=== PATIENT | female | born 1955 | race Caucasian/White ===

== ENCOUNTER 2018-05-23 13:39 | Observation (INO) ==
[2018-05-23] MEDS ORDERED: 0.9 % Sodium Chloride 1,000 ML IVC ONE (14:01)
--- NOTE | 2018-05-23 14:01 | Emergency Department Note ---
Disposition Clinical Impression: Urinary tract infection Qualifiers: Urinary tract infection type: site unspecified Hematuria presence: with hematuria Qualified Code(s): N39.0 - Urinary tract infection, site not specified Disposition: Admitted As Inpatient Condition: Fair Time of Disposition: 15:10 Female Urogenital HPI - General Chief complaint: ED General Medical Stated complaint: NAUSEA, BURNING WITH URINATION Time Seen by Provider: 05/23/18 13:52 Source: patient, other Mode of arrival: EMS Limitations: no limitations Nursing Notes Reviewed: Yes Vital Signs Reviewed: Yes - History of Present Illness HPI Narrative: 63-year-old female resents today from the PCP office secondary to " not feeling well. The patient states she did not having urinary incontinence with dysuria for the past 3-4 days. She also feels weak and slight dizziness with nausea but denies any vomiting or changes in her bowel habits. The patient denies any fever, chest pain, stress of breath, blurred vision, or changes in her bowel habits. She was sent from the PCP office due to concerns for potential cardiac etiology. The patient is a brittle diabetic and has had uncontrolled blood sugar levels within the past week. Pt Subjective Complaint: dysuria Onset (ago): day(s) Severity: unable Quality: burning Duration: gradually worsening Improves with: none Worsens with: urination Urinary Symptoms: dysuria Sexual activity: no : no Associated symptoms: Reports: weakness - Related Data Home Medications Medication Instructions Recorded Confirmed Insulin Glargine,Hum.rec.anlog 40 unit SQ BID 07/22/15 05/23/18 [Lantus Solostar] Alendronate Sodium 70 mg PO QWEEK 10/17/15 05/23/18 Aspirin Enteric Coated [Aspirin EC] 81 mg PO DAILY 07/25/17 05/23/18 Carvedilol 12.5 mg PO BID 07/25/17 05/23/18 Citalopram Hydrobromide 20 mg PO DAILY 07/25/17 05/23/18 [Citalopram HBr] Ergocalciferol (VITAMIN D2) 50,000 unit PO QWEEK 07/25/17 05/23/18 [Vitamin D2] Nitroglycerin [Nitrostat] 0.4 mg SL AD 07/25/17 05/23/18 Insulin ASPART [NovoLOG] 15 - 30 unit SQ TIDWM 11/16/17 05/23/18 Allopurinol [Zyloprim 100 MG] 100 mg PO DAILY 04/19/18 05/23/18 Atorvastatin [Lipitor] 40 mg PO DAILY 04/19/18 05/23/18 Clopidogrel [Plavix] 75 mg PO DAILY 04/19/18 05/23/18 Pramipexole [Mirapex] 0.25 mg PO HS 04/19/18 05/23/18 Zolpidem Tartrate [Zolpidem 5 mg PO HS 04/19/18 05/23/18 Tartrate] Budesonide/Formoterol 160/4.5 2 puff IH BID 05/03/18 05/23/18 [Symbicort 160/4.5] Furosemide [Lasix] 20 mg PO DAILY 05/03/18 05/23/18 Lisinopril [Zestril] 10 mg PO DAILY 05/03/18 05/23/18 Melatonin 10 mg PO HS 05/03/18 05/23/18 Potassium Chloride [K-Tab ER] 20 meq PO DAILY 05/03/18 05/23/18 Pregabalin [Lyrica] 50 mg PO TID 05/03/18 05/23/18 Ergocalciferol (VITAMIN D2) 50,000 unit PO DAILY 05/23/18 05/23/18 [Drisdol (50,000 Unit)] Fluticasone Propionate Nasal 1 spray IH DAILY 05/23/18 05/23/18 [Flonase] Fluticasone/Vilanterol [Breo 1 each IH DAILY 05/23/18 05/23/18 Ellipta 100-25 Mcg INH] Lansoprazole [Prevacid] 30 mg PO DAILY 05/23/18 05/23/18 Allergies Allergy/AdvReac Type Severity Reaction Status Date / Time promethazine [From Phenergan] Allergy Confusion Verified 04/19/18 17:33 venlafaxine [From Effexor] Allergy Nausea Verified 04/19/18 17:33 All systems ED: reviewed and negative except as stated. Review of Systems: As Per HPI Past Medical History - Past Medical History Medical history: Reports: arthritis, cardiomyopathy, CHF, COPD, coronary artery disease, diabetes, hyperlipidemia, hypertension, myocardial infarction, renal disease, other Surgical history: Reports: angioplasty/stent, appendectomy, cholecystectomy, coronary bypass (CABG), hysterectomy, orthopedic, other Psychiatric history: Reports: anxiety, depression DIRECTOR OF CORPORATE RESPONSIBILITY history: Reports: no DIRECTOR OF CORPORATE RESPONSIBILITY history - Social History Smoking Status: Never smoker Smokeless Tobacco Status: No Alcohol use: Reports: none Drug use: Reports: none Physical Exam - General Limitations: no limitations General appearance: alert - Head Head exam: atraumatic, normocephalic, normal inspection - Eye Eye exam: Present: normal appearance, PERRL, EOMI. Absent: conjunctival injection, nystagmus - ENT ENT exam: normal exam, normal oropharynx, mucous membranes moist - Chest Chest inspection: Present: normal inspection, symmetric chest wall rise - Respiratory Respiratory exam: Present: normal lung sounds bilaterally - Cardiovascular Cardiovascular exam: Present: regular rate, normal rhythm, normal heart sounds - Abdominal Exam Abdominal exam: Present: soft, Non-Tender, normal bowel sounds. Absent: distention, guarding, rebound, rigidity - Extremities Exam Extremities exam: Present: normal inspection, full ROM. Absent: tenderness, pedal edema - Neurological Exam Neurological exam: Present: alert, oriented X3, CN II-XII intact - Psychiatric Psychiatric exam: Present: normal affect, normal mood - Skin Skin exam: Present: warm, dry, normal color Course Vital Signs Temperature 98.2 F 05/23/18 13:42 Pulse Rate 82 05/23/18 13:42 Respiratory Rate 16 05/23/18 13:42 Blood Pressure 103/51 05/23/18 13:42 O2 Sat by Pulse Oximetry 96 05/23/18 13:42 Temperature 98.5 F 05/23/18 23:23 Pulse Rate 78 05/23/18 23:23 Respiratory Rate 18 05/23/18 23:23 Blood Pressure 116/66 05/23/18 23:23 O2 Sat by Pulse Oximetry 96 05/23/18 23:23 Urogenital-Female - Differential Diagnosis Likely: urinary tract infection - Medical Records Medical records reviewed: Yes I reviewed the patient's medical records. - Lab Data Lab results reviewed: Yes I reviewed the patient's lab results. Result diagrams: 05/23/18 14:22 05/23/18 14:22 Lab Results 05/23/18 05/23/18 05/23/18 Range/Units 14:11 14:22 14:22 WBC 8.8 (4.3-11.1) K/mcL RBC 4.31 (3.82-4.97) M/mcL Hgb 12.7 (11.5-15.4) g/dL Hct 37.8 (35.3-44.9) % MCV 87.7 (83.0-100.0) fL MCH 29.5 (28.0-33.3) pg MCHC 33.6 (31.6-35.5) g/dL RDW 12.6 (11.5-14.5) % Plt Count 156 (140-400) K/mcL MPV 11.5 (9.4-12.4) fL Immature Gran % 0.3 (0-4) % Seg Neutrophils % 72.9 % Lymphocytes % 19.9 % Monocytes % 5.9 % Eosinophils % 0.5 % Basophils % 0.5 % Neutrophils # 6.5 (1.6-8.9) K/mcL Lymphocytes # 1.8 (0.6-4.6) K/mcL Monocytes # 0.5 (0.0-1.3) K/mcL Eosinophils # 0.0 (0.0-0.6) K/mcL Basophils # 0.0 (0.0-0.2) K/mcL Sodium 130 L (136-145) mEq/L Potassium 5.6 H (3.5-5.1) mEq/L Chloride 96 L (98-107) mEq/L Carbon Dioxide 28 (23-29) mEq/L BUN 18 (8-23) mg/dL Creatinine 1.11 (0.60-1.20) mg/dL Est GFR ( Amer) > 60 (> 60) Est GFR (Non-Af Amer) 50 L (> 60) BUN/Creatinine Ratio 16 (6-26) Glucose 276 H (70-105) mg/dL Calculated Osmolality 282 (280-300) Calcium 9.5 (8.6-10.3) mg/dL Magnesium 1.3 L (1.6-2.6) mg/dL Total Bilirubin 0.8 (0.3-1.0) mg/dL AST 22 (13-39) Units/L ALT 16 (7-52) Units/L Alkaline Phosphatase 129 H (34-104) Units/L Serum Total Protein 7.6 (6.4-8.9) g/dL Albumin 3.6 (3.5-5.7) g/dL Globulin 4.0 H (2.4-3.5) g/dL Albumin/Globulin Ratio 0.9 L (1.1-2.2) TSH 2.466 (0.340-5.600) mcIU/mL Urine Color Yellow (Yellow) Urine Clarity Turbid A (Clear) Urine pH 5.5 (5.0-8.0) pH Units Ur Specific [place] 1.020 (1.010-1.025) Urine Protein >=300 H (Neg-Trace) mg/dL Urine Glucose (UA) Normal (Normal) mg/dL Urine Ketones Negative (Negative) mg/dL Urine Blood Moderate H (Negative) Urine Nitrite Negative (Negative) Urine Bilirubin Small H (Negative) Urine Urobilinogen Normal (Normal) mg/dL Ur Leukocyte Esterase Large H (Negative) Urine Microscopic RBC 3-5 H (0-3) per hpf Urine Microscopic WBC TNTC H (0-3) per hpf Ur Squamous Epith Cells Few (None-Few) per lpf Urine Bacteria Many H (None-Few) per hpf Ur Culture Indicated? YES A (NO) - Radiology Data Radiology results reviewed: Yes I reviewed the patient's radiology results. Chest X-Ray 05/23/18 14:01 IMPRESSION: No acute process. D/ / Ryan Kennedy MD / Ryan Kennedy MD Interpreting Provider: Ryan Kennedy MD - EKG Data EKG attestation: Yes I reviewed and interpreted this EKG. Rate: normal Rhythm: NSR T wave inversions noted in: I, aVL When compared to previous EKG there are MDM ED: no significant changes Interpretation: unchanged when compared to prior tracing (date) (04/19/18), nonspecific ST-T wave changes
[2018-05-23 14:31] LABS: Basophils % 0.5 %; Eosinophils % 0.5 %; Hematocrit 37.8 % (35.3-44.9); Hemoglobin 12.7 g/dL (11.5-15.4); Immature Granulocytes % 0.3 % (0-4); Lymphocytes # 1.8 K/mcL (0.6-4.6); Lymphocytes % 19.9 %; Mean Corpuscular HGB Conc 33.6 g/dL (31.6-35.5); Mean Corpuscular Hemoglobin 29.5 pg (28.0-33.3); Mean Corpuscular Volume 87.7 fL (83.0-100.0); Mean Platelet Volume 11.5 fL (9.4-12.4); Monocytes # 0.5 K/mcL (0.0-1.3); Monocytes % 5.9 %; Neutrophils # 6.5 K/mcL (1.6-8.9); Platelet Count 156 K/mcL (140-400); Red Blood Count 4.31 M/mcL (3.82-4.97); Red Cell Distribution Width 12.6 % (11.5-14.5); Segmented Neutrophils % 72.9 %
[2018-05-23 14:35] LABS: Bilirubin,Urine Small (Negative); Blood,Urine Moderate (Negative); Clarity,Urine Turbid (Clear); Color,Urine Yellow (Yellow); Glucose,Urine (UA) Normal (Normal); Ketones,Urine Negative (Negative); Leukocyte Esterase,Urine Large (Negative); Nitrite,Urine Negative (Negative); PH,Urine 5.5 pH Units (5.0-8.0); Protein,Urine >=300 mg/dL (Neg-Trace); Urobilinogen,Urine Normal (Normal)
[2018-05-23 14:43] LABS: Bacteria,Urine Many per hpf (None-Few); Squamous Epithelial Cell,Urine Few per lpf (None-Few); WBC,Urine TNTC per hpf (0-3)
[2018-05-23] MEDS ORDERED: Levofloxacin 750 MG/150 ML 750 MG/150 ML BAG IVPB ONE (14:46)
[2018-05-23 14:49] LABS: Alanine Aminotransferase 16 Units/L (7-52); Albumin 3.6 g/dL (3.5-5.7); Albumin/Globulin Ratio 0.9 (1.1-2.2); Alkaline Phosphatase 129 Units/L (34-104); Aspartate Amino Transferase 22 Units/L (13-39); BUN/Creatinine Ratio 16 (6-26); Bilirubin,Total 0.8 mg/dL (0.3-1.0); Blood Urea Nitrogen 18 mg/dL (8-23); Calcium 9.5 mg/dL (8.6-10.3); Carbon Dioxide 28 mEq/L (23-29); Chloride 96 mEq/L (98-107); Glucose 276 mg/dL (70-105); Magnesium 1.3 mg/dL (1.6-2.6); Osmolality,Calculated 282 (280-300); Potassium 5.6 mEq/L (3.5-5.1); Sodium 130 mEq/L (136-145); Total Protein 7.6 g/dL (6.4-8.9); eGFR For African Americans > 60 (> 60); eGFR For Non-African Americans 50 (> 60)
[2018-05-23 15:02] LABS: Thyroid Stimulating Hormone 2.466 mcIU/mL (0.340-5.600)
[2018-05-23] MEDS ORDERED: Magnesium Oxide 400 MG TABLET PO STA (15:06)
[2018-05-23] MEDS ORDERED: Ondansetron 4 MG/2 ML VIAL IVP ONE (15:15)
--- NOTE | 2018-05-23 18:30 | Internal Med History&Physical ---
Date of Encounter: 05/23/18 Time of Encounter: 18:00 Assessment and Plan (1) Urinary tract infection Current visit: Yes Status: Acute She was given IV Levaquin in the emergency room. Will give IV Rocephin with lactobacillus. Qualifiers: Urinary tract infection type: site unspecified Hematuria presence: with hematuria Qualified Code(s): N39.0 - Urinary tract infection, site not specified; R31.9 - Hematuria, unspecified (2) Hypomagnesemia Current visit: Yes Status: Acute Will order supplemental magnesium. (3) Low vitamin D level Current visit: Yes Status: Acute Vitamin D level was 11 on 09/02/2014. Recheck in a.m. (4) Hyperkalemia Current visit: Yes Status: Acute Discontinue supplemental potassium and monitor labs. (5) DM type 2 (diabetes mellitus, type 2) Current visit: No Status: Chronic Check hemoglobin A1c in a.m. Continue Lantus/Levemir and do Accu-Cheks with SSI. 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 (7) Tinea pedis Current visit: Yes Status: Acute Will apply Lotrimin cream. Qualifiers: Laterality: left Qualified Code(s): B35.3 - Tinea pedis Internal Medicine - H&P: HPI Chief complaint: Dysuria Admitted From: Emergency Dept Plans for Post Hospital Care: Home History of present illness: Ms. Rowe is a 63 year old female who was sent to emergency room from her PCP office where she had gone for routine follow-up visit and complained of dysuria onset May 21. She had nausea without vomiting diarrhea or significant pain. She was evaluated in emergency room and found to have hyperkalemia, hyponatremia , hypomagnesemia, and UTI. She was admitted to [facility] floor for ongoing care needs. She reports 1-2 urinary tract infections per month for over a year. She does not follow with urology. She has chronic kidney disease stage III and follows with a [facility]. She denies other kidney or bladder disorders. Past Med Surg Social Fam HX - Past Medical History Medical history: arthritis, cardiomyopathy, CHF, COPD, coronary artery disease, diabetes, hyperlipidemia, hypertension, myocardial infarction, renal disease, other Additional medical history: left broken foot. ULCER TO RIGHR FOOT. LEFT FOOT FX AND NOT HEALING WELL. Psychiatric history: anxiety, depression - Past Surgical History Surgical History: angioplasty/stent, appendectomy, cholecystectomy, coronary bypass (CABG), hysterectomy, orthopedic, other Additional surgical history: hardware placement to left foot. 2 CARDIAC STENTS - Social History Smoking Status: Never smoker Smokeless Tobacco Status: No Alcohol use: none Drug use: none - Family History Daughter Living Status: Still Living Internal Medicine - H&P: Meds Insulin Glargine,Hum.rec.anlog [Lantus Solostar] 40 unit SQ BID 07/22/15 [ History] Alendronate Sodium 70 mg PO QWEEK 10/17/15 [History] Aspirin Enteric Coated [Aspirin EC] 81 mg PO DAILY 07/25/17 [History] Carvedilol 12.5 mg PO BID 07/25/17 [History] Citalopram Hydrobromide [Citalopram HBr] 20 mg PO DAILY 07/25/17 [History] Ergocalciferol (VITAMIN D2) [Vitamin D2] 50,000 unit PO QWEEK 07/25/17 [History] Nitroglycerin [Nitrostat] 0.4 mg SL AD 07/25/17 [History] Insulin ASPART [NovoLOG] 15 - 30 unit SQ TIDWM 11/16/17 [History] Allopurinol [Zyloprim 100 MG] 100 mg PO DAILY 04/19/18 [History] Atorvastatin [Lipitor] 40 mg PO DAILY 04/19/18 [History] Clopidogrel [Plavix] 75 mg PO DAILY 04/19/18 [History] Pramipexole [Mirapex] 0.25 mg PO HS 04/19/18 [History] Zolpidem Tartrate [Zolpidem Tartrate] 5 mg PO HS 04/19/18 [History] Budesonide/Formoterol 160/4.5 [Symbicort 160/4.5] 2 puff IH BID 05/03/18 [ History] Furosemide [Lasix] 20 mg PO DAILY 05/03/18 [History] Lisinopril [Zestril] 10 mg PO DAILY 05/03/18 [History] Melatonin 10 mg PO HS 05/03/18 [History] Potassium Chloride [K-Tab ER] 20 meq PO DAILY 05/03/18 [History] Pregabalin [Lyrica] 50 mg PO TID 05/03/18 [History] Ergocalciferol (VITAMIN D2) [Drisdol (50,000 Unit)] 50,000 unit PO DAILY [History] Fluticasone Propionate Nasal [Flonase] 1 spray IH DAILY 05/23/18 [History] Fluticasone/Vilanterol [Breo Ellipta 100-25 Mcg INH] 1 each IH DAILY 05/23/18 [ History] Lansoprazole [Prevacid] 30 mg PO DAILY 05/23/18 [History] 3 Allergy/AdvReac Type Severity Reaction Status Date / Time promethazine [From Phenergan] Allergy Confusion Verified 04/19/18 17:33 venlafaxine [From Effexor] Allergy Nausea Verified 04/19/18 17:33 All Systems PM: A 10-system review of systems was performed and is negative for pertinent findings except as documented above in the HPI. Review of systems: Review of systems from her November 2017 [facility] hospitalization were reviewed and revised as below. Gen.: Her weight has been stable since November 2017 visit at approximately 118 kg. Cardiovascular: She has history of hypertension and known ASHD status post CO 1994. She had stents placed 2004 in 2012. She had 1 vessel CABG October 2016 in [place]. She had a heart catheter 04/21/2018 at [facility] which showed LMCA free of disease, 100% stenosis in the proximal LAD with in-stent restenosis. The FREEMAN to LAD graft was patent. The circumflex was angiographically free of disease and first marginal branch had minimal disease. There was 70% stenosis in the mid ramus. The RCA showed 40-50% stenosis in the right PDA without thrombus present. LVEF was 60%. Echocardiogram 04/20/2018 showed LVEF of 60-65 % with mild LV diastolic dysfunction with E/A ratio of 0.70. No significant valvular abnormalities were seen. Respiratory: She is a lifelong nonsmoker. She has a diagnosis of asthma. She has BLANCA and wears CPAP GI: She is status post cholecystectomy. She has GERD but denies disorders of her liver or exocrine pancreas. : She has CKD stage III and follows with Dr. Steward. She denies other kidney or bladder disorders. Neurologic: She has RLS but denies large distribution strokes or seizures. Endocrine: She was diagnosed with DM 2 approximately 1990. She has hyperlipidemia but no known thyroid disease. She has history of low vitamin D level. Hematology/oncology. She had right breast cancer with a lumpectomy several years ago which was curative. She did not take postoperative radiation therapy or chemotherapy. She denies other internal malignancies or anemia. Psychiatric: She has depression and anxiety but denies other mental health issues. [place] skeletal: She has DJD , gout, and diagnosis of osteoporosis. She has diabetic peripheral neuropathy. She had injury to her left foot from "brittle bones" requiring surgical repair several years ago and generally wears a walking boot on the left foot. - Constitutional Vitals: Temp Pulse Resp BP Pulse Ox 98.2 F 73 18 122/59 96 05/23/18 13:42 05/23/18 15:34 05/23/18 15:34 05/23/18 15:34 05/23/18 15:34 Exam: Gen.: She is well-developed obese female lying in bed who appears in minimal distress at present time HEENT: Head is atraumatic and normocephalic. Eyes: EOMI. There is no scleral icterus. Mouth: Mucosa is moist. Neck: Supple and nontender. There is no thyromegaly or adenopathy noted. Heart: Regular without murmurs gallops or ectopics Lungs: No wheezes or crackles are heard. Abdomen: Soft and nontender to palpation. No masses or guarding are noted. Extremities: There is no cyanosis edema or clubbing noted. Dorsalis pedis and posttibial pulses are trace palpable bilaterally. Neurologic: Mental status: She is talkative and a good historian. Cranial nerves: Smile is symmetric. Forehead wrinkles bilaterally. Tongue protrudes midline. EOMI. Motor: There is no pronator drift. Cerebellar: Finger to nose is intact bilaterally. Skin: Warm and dry. She has tinea corporis on her posterior mid left calf extending to the heel. She has healed surgical scar on her left lateral foot area and bilateral TKR scars. Internal Med - H&P Results - Labs CBC & Chem 7: 05/23/18 14:22 05/23/18 14:22
[2018-05-23] MEDS ORDERED: 0.9 % Sodium Chloride 1,000 ML IVC SCH (19:00)
[2018-05-23] MEDS ORDERED: Insulin DETEMIR 100 UNIT/ML per UNIT SQ ONE ×2 (21:00→21:15)
[2018-05-23] MEDS ORDERED: Melatonin 3 MG TABLET PO SCH (21:00)
[2018-05-23] MEDS: Budesonide/Formoterol 160/4.5 MDI IH SCH (21:01)
[2018-05-23] MEDS: Fluconazole 100 MG TABLET PO SCH (21:52)
[2018-05-23] MEDS: cefTRIAXone 1,000 MG in Water for inj. (sterile) 20 ML 10 ML IVP SCH (21:53)
[2018-05-23] MEDS: Lactobacillus 1 EACH CAP.SPRINK PO SCH (22:07)
[2018-05-23] MEDS: Pregabalin 50 MG CAPSULE PO SCH (22:09)
[2018-05-23] MEDS: Magnesium Oxide 400 MG TABLET PO SCH (22:09)
[2018-05-23] MEDS: Clotrimazole 1% CRM 15 GM TUBE TP SCH (22:19)
[2018-05-24 07:01] LABS: BUN/Creatinine Ratio 19 (6-26); Blood Urea Nitrogen 19 mg/dL (8-23); Carbon Dioxide 29 mEq/L (23-29); Chloride 102 mEq/L (98-107); Glucose 97 mg/dL (70-105); Osmolality,Calculated 286 (280-300); Potassium 4.7 mEq/L (3.5-5.1); Sodium 137 mEq/L (136-145); eGFR For African Americans > 60 (> 60); eGFR For Non-African Americans 56 (> 60)
[2018-05-24] MEDS: Magnesium Oxide 400 MG TABLET PO SCH (08:35)
[2018-05-24] MEDS: Pregabalin 50 MG CAPSULE PO SCH (08:35)
[2018-05-24] MEDS: Lactobacillus 1 EACH CAP.SPRINK PO SCH (08:35)
[2018-05-24] MEDS: Fluconazole 100 MG TABLET PO SCH (08:35)
[2018-05-24] MEDS: cefTRIAXone 1,000 MG in Water for inj. (sterile) 20 ML 10 ML IVP SCH (08:36)
[2018-05-24] MEDS: Clotrimazole 1% CRM 15 GM TUBE TP SCH (08:50)
[2018-05-24] MEDS ORDERED: Aspirin 81 MG TAB.CHEW PO SCH (09:00)
[2018-05-24] MEDS ORDERED: Insulin DETEMIR 100 UNIT/ML X5UNITS SQ SCH (09:00)
[2018-05-24 09:37] LABS: Estimated Average Glucose 240 mg/dl
--- NOTE | 2018-05-24 10:14 | Discharge Summary ---
Orders not resulted at time of discharge: Pending orders 05/24/18 05:37 Vitamin D 25 Hydroxy AM 0400 Date of Encounter: 05/24/18 Time of Encounter: 10:05 - Discharge Diagnosis (1) Urinary tract infection Priority: Primary Status: Acute Qualifiers: Urinary tract infection type: site unspecified Hematuria presence: with hematuria Qualified Code(s): N39.0 - Urinary tract infection, site not specified; R31.9 - Hematuria, unspecified (2) Hypomagnesemia Priority: Secondary Status: Acute (3) Low vitamin D level Priority: Secondary Status: Acute (4) Hyperkalemia Priority: Secondary Status: Resolved (5) DM type 2 (diabetes mellitus, type 2) Priority: Secondary Status: Chronic Qualifiers: Diabetes mellitus senior care insulin use: with pharmacist technician use Diabetes mellitus complication status: without complication Qualified Code(s): E11.9 - Type 2 diabetes mellitus without complications; Z79.4 - [facility] (current) use of insulin (6) CKD (chronic kidney disease) stage 3, GFR 30-59 ml/min Priority: Secondary Status: Chronic (7) Tinea pedis Priority: Secondary Status: Acute Qualifiers: Laterality: left Qualified Code(s): B35.3 - [facility] course: Ms. Rowe is a 63 year old female who was sent to emergency room from her PCP office where she had gone for routine follow-up visit and complained of dysuria onset May 21. She had nausea without vomiting diarrhea or significant pain. She was evaluated in emergency room and found to have hyperkalemia, hyponatremia , hypomagnesemia, and UTI. She was admitted to [facility] floor for ongoing care needs. Initial orders were written by the emergency room physician. I saw her on May 23 and performed the history and physical. She was given IV Levaquin in emergency room. I started her on IV Rocephin with lactobacillus. Urine culture report was pending at time of discharge. She remained afebrile and her symptoms had significantly improved when I saw her on May 23. She will continue on Ceftin with lactobacillus for 3 additional days at discharge. She will also be given Diflucan and Pyridium. Because of the frequency of her urinary infections I told her she discuss with her PCP using a suppressive antibiotic regimen to prevent UTIs. Magnesium level returned low at 1.3. She was started on supplemental magnesium and will be given a 7 day prescription at discharge. Her PCP can monitor this. Vitamin D level is pending at time of discharge. Supplemental potassium was discontinued because of hyperkalemia. Her PCP can monitor labs. Hemoglobin A1c returned elevated at 10.0%. Lantus will be increased to 45 units twice a day at discharge. Topical antifungal cream will be given for rash of her left lower leg. She felt stable for discharge home on May 24. She will follow with her PCP Dr. Felder within 1 week. - Time Spent with Patient Total time spent providing and/or coordinating discharge services: - Discharge Medications Prescriptions: Cefuroxime PO [Ceftin] 500 mg PO Q12HR #6 tablet Econazole Nitrate 15 gm TP BID #1 tube Fluconazole [Diflucan] 100 mg PO DAILY #3 tablet Lactobacillus [Culturelle] 1 each PO BID #6 cap.sprink Magnesium Oxide [Mag-Ox] 400 mg PO BID #14 tablet Phenazopyridine [Pyridium] 200 mg PO TID #9 tablet Home Medications: Alendronate Sodium 70 mg PO QWEEK 10/17/15 [History] Aspirin Enteric Coated [Aspirin EC] 81 mg PO DAILY 07/25/17 [History] Carvedilol 12.5 mg PO BID 07/25/17 [History] Citalopram Hydrobromide [Citalopram HBr] 20 mg PO DAILY 07/25/17 [History] Ergocalciferol (VITAMIN D2) [Vitamin D2] 50,000 unit PO QWEEK 07/25/17 [History] Nitroglycerin [Nitrostat] 0.4 mg SL AD 07/25/17 [History] Insulin ASPART [NovoLOG] 15 - 30 unit SQ TIDWM 11/16/17 [History] Allopurinol [Zyloprim 100 MG] 100 mg PO DAILY 04/19/18 [History] Atorvastatin [Lipitor] 40 mg PO DAILY 04/19/18 [History] Clopidogrel [Plavix] 75 mg PO DAILY 04/19/18 [History] Pramipexole [Mirapex] 0.25 mg PO HS 04/19/18 [History] Zolpidem Tartrate 5 mg PO HS 04/19/18 [History] Budesonide/Formoterol 160/4.5 [Symbicort 160/4.5] 2 puff IH BID 05/03/18 [ History] Lisinopril [Zestril] 10 mg PO DAILY 05/03/18 [History] Melatonin 10 mg PO HS 05/03/18 [History] Pregabalin [Lyrica] 50 mg PO TID 05/03/18 [History] Fluticasone Propionate Nasal [Flonase] 1 spray IH DAILY 05/23/18 [History] Fluticasone/Vilanterol [Breo Ellipta 100-25 Mcg INH] 1 each IH DAILY 05/23/18 [ History] Cefuroxime PO [Ceftin] 500 mg PO Q12HR #6 tablet 05/24/18 [Rx] Econazole Nitrate 15 gm TP BID #1 tube 05/24/18 [Rx] Fluconazole [Diflucan] 100 mg PO DAILY #3 tablet 05/24/18 [Rx] Insulin Glargine,Hum.rec.anlog [Lantus Solostar] 45 unit SQ BID #0 05/24/18 [Rx] Lactobacillus [Culturelle] 1 each PO BID #6 cap.sprink 05/24/18 [Rx] Lansoprazole [Prevacid] 30 mg PO DAILY PRN #0 05/24/18 [Rx] Magnesium Oxide [Mag-Ox] 400 mg PO BID #14 tablet 05/24/18 [Rx] Phenazopyridine [Pyridium] 200 mg PO TID #9 tablet 05/24/18 [Rx] Allergies/Adverse Reactions: 3 Allergy/AdvReac Type Severity Reaction Status Date / Time promethazine [From Phenergan] Allergy Confusion Verified 04/19/18 17:33 venlafaxine [From Effexor] Allergy Nausea Verified 04/19/18 17:33 Date of admission: 05/23/18 15:34 Primary care physician: Reji Felder DO Consults: 05/23/18 16:57 Consult to Seasonal Package Handler [CONS] Routine Reason for SW Consult: has HH but does not know name of company - Constitutional Vitals: Temp Pulse Resp BP Pulse Ox 97.8 F 79 16 113/51 93 05/24/18 06:39 05/24/18 06:39 05/24/18 06:39 05/24/18 06:39 05/24/18 06:39 - Patient Status Disposition: Home, Self-Care Condition: Fair Overall status at discharge: patient is progressing back to baseline - Discharge Instructions Follow Up With: Reji Felder DO [Primary Care Provider] - 1 week - Diet and Activity Activity: resume usual activities as tolerated Diet: diabetic diet
[2018-05-24 10:52] VITALS: BP 102/58
[2018-05-24] MEDS: Budesonide/Formoterol 160/4.5 MDI IH SCH (10:58)
--- NOTE | 2018-05-25 06:42 | Electrocardiograph Report ---
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
== END 2018-05-24 11:55 | disposition home or self-care (01) ==
LOC: EMEROOPIK 13:39 → INPPIK 13:39
PROVIDERS: ADMIT Internal Medicine; ATTEND Internal Medicine

== ENCOUNTER 2018-09-09 15:09 | Observation (INO) ==
[2018-09-09] MEDS ORDERED: Aspirin 81 MG TAB.CHEW PO ONE (15:13)
[2018-09-09] MEDS ORDERED: Nitroglycerin Spray 4.9 GM BOTTLE TL PRN ×2 (15:18→18:10)
--- NOTE | 2018-09-09 15:32 | Emergency Department Note ---
Disposition Clinical Impression: Stable angina, Chest pain Disposition: Admitted As Inpatient Condition: Fair Time of Disposition: 16:27 ( accepted) Chest Pain HPI - General Chief Complaint: ED Chest Pain Stated Complaint: CHEST PAIN Time Seen by Provider: 09/09/18 15:13 Source: patient, EMS Mode of arrival: EMS Limitations: no limitations, physical limitation Vital Signs Reviewed: Yes Nursing Notes Reviewed: Yes - History of Present Illness HPI Narrative: 63-year-old female presented to the emergency department via EMS with complaints of substernal chest pain. Patient reports that she was folding some clothes last night when she began having the pain, and she complains of pain waxing on and off since last night. She reports that the pain initially was 8 out of a 10 scale, but presently is a 6 out of a 10 scale. Patient has had prior history of CABG, known coronary disease, and history of 6 cardiac stent placement. Her dental professional is at [facility] in [place]. Patient did not take any sublingual nitroglycerin, prior to coming in. She states to me she feels like someone is sitting on top of her chest. Pt complaint: chest pain Onset (ago): hour(s) (12) Duration: intermittent Onset: during rest Pain Location: left chest Severity: moderate Severity scale (1-10): 6 Quality: tightness, sharp Pain Radiation: LUE Improves with: nothing Worsens with: nothing Associated symptoms: Denies: nausea, vomiting, diaphoresis, dyspnea - Related Data Home Medications Medication Instructions Recorded Confirmed Alendronate Sodium 70 mg PO QWEEK 10/17/15 06/05/18 Aspirin Enteric Coated [Aspirin EC] 81 mg PO DAILY 07/25/17 06/05/18 Carvedilol 12.5 mg PO BID 07/25/17 06/05/18 Citalopram Hydrobromide 20 mg PO DAILY 07/25/17 05/23/18 [Citalopram HBr] Nitroglycerin [Nitrostat] 0.4 mg SL AD 07/25/17 06/05/18 Insulin ASPART [NovoLOG] 15 - 30 unit SQ TIDWM 11/16/17 06/05/18 Atorvastatin [Lipitor] 40 mg PO DAILY 04/19/18 06/05/18 Clopidogrel [Plavix] 75 mg PO DAILY 04/19/18 06/05/18 Pramipexole [Mirapex] 0.25 mg PO HS 04/19/18 06/05/18 Zolpidem Tartrate 10 mg PO HS 04/19/18 06/05/18 Budesonide/Formoterol 160/4.5 2 puff IH BID 05/03/18 06/05/18 [Symbicort 160/4.5] Lisinopril [Zestril] 5 mg PO DAILY 05/03/18 06/05/18 Fluticasone Propionate Nasal 1 spray IH DAILY 05/23/18 06/05/18 [Flonase] Fluticasone/Vilanterol [Breo 1 each IH DAILY 05/23/18 06/05/18 Ellipta 100-25 Mcg INH] ARIPiprazole [Abilify] 5 mg PO DAILY 06/05/18 06/05/18 Calcium Carbonate [Calcium] 600 mg PO DAILY 06/05/18 06/05/18 Clobetasol Propionate [Clobex] 59 ml TP DAILY 06/05/18 06/05/18 Ergocalciferol (VITAMIN D2) 50,000 unit PO DAILY 06/05/18 06/05/18 [Drisdol (50,000 Unit)] Furosemide [Lasix] 20 mg PO DAILY 06/05/18 06/05/18 Gabapentin [Neurontin] 300 mg PO TID 06/05/18 06/05/18 Insulin Glargine,Hum.rec.anlog 70 unit SQ BID 06/05/18 06/05/18 [Lantus Solostar] Omeprazole [PriLOSEC] 40 mg PO DAILY 06/05/18 06/05/18 Potassium Chloride [K-Tab ER] 20 meq PO DAILY 06/05/18 06/05/18 Pramipexole Di-HCl [Pramipexole 0.25 mg PO HS 06/05/18 06/05/18 Dihydrochloride] Tramadol HCl [Ultram] 50 mg PO QID PRN 06/05/18 06/05/18 Previous Rx's Medication Instructions Recorded Cyclobenzaprine [Flexeril] 5 mg PO TID #20 tablet 06/24/18 HYDROcodone/Acet 5/325 mg [[place] 1 tab PO Q6H PRN 3 Days #10 tab 06/24/18 5-325 mg] Allergies Allergy/AdvReac Type Severity Reaction Status Date / Time promethazine [From Phenergan] Allergy Confusion Verified 09/09/18 15:10 venlafaxine [From Effexor] Allergy Nausea Verified 09/09/18 15:10 Constitutional: Denies: fever, chills, weakness, weight change Eyes: Denies: eye pain, eye discharge, vision change ENT ED: Denies: ear pain, throat pain, dental pain, hearing loss, epistaxis, congestion, dysphagia Cardiovascular: Denies: chest pain, palpitations, dyspnea on exertion, edema, syncope Respiratory: Denies: cough, dyspnea, wheezes, hemoptysis, stridor Gastrointestinal: Denies: abdominal pain, nausea, vomiting, diarrhea, constipation, hematemesis, melena, hematochezia Genitourinary: Denies: dysuria, frequency, hematuria, discharge Musculoskeletal: Denies: back pain, neck pain, arthralgia, myalgia Integumentary: Denies: rash, abrasion, lesions Neurological: Denies: headache, weakness, numbness, paresthesias, confusion, abnormal gait, vertigo Psychiatric: Denies: anxiety, depression, suicidal thoughts, homicidal thoughts, auditory hallucinations, visual hallucinations Endocrine: Denies: fatigue Hematological/Lymphatic: Denies: easy bleeding, easy bruising Allergic/Immunologic: Denies: facial swelling, urticaria Chest Pain PMH - Past Medical History Medical history: Reports: arthritis, cardiomyopathy, CHF, COPD, coronary artery disease, diabetes, hyperlipidemia, hypertension, myocardial infarction, renal disease Surgical history: Reports: angioplasty/stent, appendectomy, cholecystectomy, coronary bypass (CABG), hysterectomy, orthopedic, other Psychiatric history: Reports: anxiety, depression DROSOPHERE OPERATOR history: Reports: no DROSOPHERE OPERATOR history - Social History Smoking Status: Never smoker Alcohol use: Reports: none Drug use: Reports: none Physical Exam - General Limitations: physical limitation General appearance: alert, in no apparent distress - Head Head exam: atraumatic, normocephalic, normal inspection - Eye Eye exam: Present: normal appearance, PERRL, EOMI - Expanded Eye Exam Pupils: Left: reactive - ENT ENT exam: normal exam, normal oropharynx, mucous membranes moist - Expanded ENT Exam External ear exam: Present: normal external inspection Mouth exam: Present: normal external inspection Teeth exam: Present: normal inspection Throat exam: Present: normal inspection - Neck Neck exam: Present: normal inspection, full ROM, trachea midline - Chest Chest inspection: Present: normal inspection, symmetric chest wall rise - Respiratory Respiratory exam: Present: normal lung sounds bilaterally - Cardiovascular Cardiovascular exam: Present: regular rate, normal rhythm, normal heart sounds - Abdominal Exam Abdominal exam: Present: soft, Non-Tender. Absent: tenderness, distention, guarding, rebound, rigidity - Extremities Exam Extremities exam: Present: normal inspection, full ROM, other (Patient wears a boot to her left lower extremity, secondary to injury 2 years ago). Absent: tenderness, pedal edema - Expanded Upper Extremity Exam Shoulder exam: Present: normal inspection, full ROM Arm exam: Present: normal inspection, full ROM Elbow exam: Present: normal inspection, full ROM Forearm/Wrist exam: Present: normal inspection, full ROM Hand exam: Present: normal inspection, full ROM Vascular exam: Normal: capillary refill, radial pulse - Expanded Lower Extremity Exam Hip/Pelvis exam: Present: normal inspection, full ROM Upper leg exam: Present: normal inspection, full ROM Knee exam: Present: normal inspection, full ROM Lower leg exam: Present: normal inspection, full ROM, other (Patient wears a boot to her left lower extremity, secondary to previous injury) Ankle exam: Present: normal inspection, full ROM Foot/toe exam: Present: normal inspection, full ROM Neurovascular/Tendon exam: Absent: motor deficit, sensory deficit, tendon deficit - Back Exam Back exam: Present: normal inspection, full ROM. Absent: tenderness - Neurological Exam Neurological exam: Present: alert, oriented X3 - Expanded Neurological Exam Patient oriented to: Present: person, place, time Coma Scale Eye Opening: Spontaneous Coma Scale Motor Response: Obeys Commands Coma Scale Verbal Response: Oriented Coma Scale Total: 15 - Psychiatric Psychiatric exam: Present: normal affect, normal mood - Skin Skin exam: Present: warm, dry, intact, normal color Course Vital Signs Temperature 98.5 F 09/09/18 15:10 Pulse Rate 73 09/09/18 15:10 Respiratory Rate 14 09/09/18 15:10 Blood Pressure 163/67 09/09/18 15:10 O2 Sat by Pulse Oximetry 95 09/09/18 15:10 Temperature 98.5 F 09/09/18 15:10 Pulse Rate 66 09/09/18 18:18 Respiratory Rate 12 09/09/18 18:18 Blood Pressure 137/58 09/09/18 18:18 O2 Sat by Pulse Oximetry 97 09/09/18 18:18 Oxygen Delivery Oxygen Delivery Room Air Chest Pain - MDM Narrative Medical decision making narrative: Patient was given aspirin, and nitroglycerin spray 2. The nitroglycerin did help her chest pain and it brought it down from a 6 down to approximately a 3. CBC is normal patient is BUN/creatinine creatinine is around 1.20 and potassium of 5.4. This could be related to dehydration and hyperglycemia. Patient was ordered normal saline 500 bolus, and insulin 6 units of regular IV. At approximately 4:20 PM, patient is chest pain-free I spoke with Dr. Peralta who accepted the patient had wanted a repeat troponin in 2 hours which I have went ahead and ordered. Repeat troponin in 2 hours was within normal limits - Differential Diagnosis Likely: unstable angina pectoris, atypical chest pain, st elevation myocardial infraction, chest pain - Medical Records Medical records reviewed: Yes I reviewed the patient's medical records. - Lab Data Lab results reviewed: Yes I reviewed the patient's lab results. Result diagrams: 09/09/18 15:31 09/09/18 15:31 Lab Results 09/09/18 09/09/18 09/09/18 Range/Units 15:31 15:31 15:31 WBC 4.5 (4.3-11.1) K/mcL RBC 4.41 (3.82-4.97) M/mcL Hgb 12.7 (11.5-15.4) g/dL Hct 37.8 (35.3-44.9) % MCV 85.7 (83.0-100.0) fL MCH 28.8 (28.0-33.3) pg MCHC 33.6 (31.6-35.5) g/dL RDW 12.8 (11.5-14.5) % Plt Count 124 L (140-400) K/mcL MPV 11.7 (9.4-12.4) fL Immature Gran % 0.2 (0-4) % Seg Neutrophils % 63.1 % Lymphocytes % 28.0 % Monocytes % 6.2 % Eosinophils % 1.8 % Basophils % 0.7 % Neutrophils # 2.8 (1.6-8.9) K/mcL Lymphocytes # 1.3 (0.6-4.6) K/mcL Monocytes # 0.3 (0.0-1.3) K/mcL Eosinophils # 0.1 (0.0-0.6) K/mcL Basophils # 0.0 (0.0-0.2) K/mcL PT 11.4 (9.4-12.1) Seconds INR 1.0 APTT 36.8 H (26.0-36.0) Seconds Sodium (136-145) mEq/L Potassium (3.5-5.1) mEq/L Chloride (98-107) mEq/L Carbon Dioxide (23-29) mEq/L BUN (8-23) mg/dL Creatinine (0.60-1.20) mg/dL Est GFR ( Amer) (> 60) Est GFR (Non-Af Amer) (> 60) BUN/Creatinine Ratio (6-26) Glucose (70-105) mg/dL Calculated Osmolality (280-300) Calcium (8.6-10.3) mg/dL Troponin I (< 0.04) ng/mL B-Natriuretic Peptide 47 (Less than 100) pg/mL 09/09/18 09/09/18 Range/Units 15:31 17:26 WBC (4.3-11.1) K/mcL RBC (3.82-4.97) M/mcL Hgb (11.5-15.4) g/dL Hct (35.3-44.9) % MCV (83.0-100.0) fL MCH (28.0-33.3) pg MCHC (31.6-35.5) g/dL RDW (11.5-14.5) % Plt Count (140-400) K/mcL MPV (9.4-12.4) fL Immature Gran % (0-4) % Seg Neutrophils % % Lymphocytes % % Monocytes % % Eosinophils % % Basophils % % Neutrophils # (1.6-8.9) K/mcL Lymphocytes # (0.6-4.6) K/mcL Monocytes # (0.0-1.3) K/mcL Eosinophils # (0.0-0.6) K/mcL Basophils # (0.0-0.2) K/mcL PT (9.4-12.1) Seconds INR APTT (26.0-36.0) Seconds Sodium 135 L (136-145) mEq/L Potassium 5.4 H (3.5-5.1) mEq/L Chloride 100 (98-107) mEq/L Carbon Dioxide 30 H (23-29) mEq/L BUN 20 (8-23) mg/dL Creatinine 1.20 (0.60-1.20) mg/dL Est GFR ( Amer) 55 L (> 60) Est GFR (Non-Af Amer) 46 L (> 60) BUN/Creatinine Ratio 17 (6-26) Glucose 471 H (70-105) mg/dL Calculated Osmolality 303 H (280-300) Calcium 9.0 (8.6-10.3) mg/dL Troponin I < 0.03 < 0.03 (< 0.04) ng/mL B-Natriuretic Peptide (Less than 100) pg/mL - Radiology Data Radiology results reviewed: Yes I reviewed the patient's radiology results. - EKG Data EKG attestation: Yes I reviewed and interpreted this EKG. EKG results narrative: EKG is normal sinus rhythm, what appears to be T-wave inversion in 1 and aVL. EKG looks the same as one , in June 2018. Patient has had also a cardiac catheterization in April 2018, which showed her stents to be patent. She did have 100% distal LAD lesion. The patient has had also prior CABG. EKG shows normal: sinus rhythm Rate: normal Rhythm: NSR [place]/QRS: left axis deviation T wave inversions noted in: I, aVL - Core Measures AMI Core Measures Followed: Yes (Aspirin given, sublingual nitroglycerin)
[2018-09-09 15:42] LABS: Basophils % 0.7 %; Eosinophils # 0.1 K/mcL (0.0-0.6); Eosinophils % 1.8 %; Hematocrit 37.8 % (35.3-44.9); Hemoglobin 12.7 g/dL (11.5-15.4); Immature Granulocytes % 0.2 % (0-4); Lymphocytes # 1.3 K/mcL (0.6-4.6); Mean Corpuscular HGB Conc 33.6 g/dL (31.6-35.5); Mean Corpuscular Hemoglobin 28.8 pg (28.0-33.3); Mean Corpuscular Volume 85.7 fL (83.0-100.0); Mean Platelet Volume 11.7 fL (9.4-12.4); Monocytes # 0.3 K/mcL (0.0-1.3); Monocytes % 6.2 %; Neutrophils # 2.8 K/mcL (1.6-8.9); Platelet Count 124 K/mcL (140-400); Red Blood Count 4.41 M/mcL (3.82-4.97); Red Cell Distribution Width 12.8 % (11.5-14.5); Segmented Neutrophils % 63.1 %
[2018-09-09 15:52] LABS: Prothrombin Time 11.4 Seconds (9.4-12.1)
[2018-09-09 15:55] LABS: Activated Partial Thrombo Time 36.8 Seconds (26.0-36.0)
[2018-09-09 16:02] LABS: BUN/Creatinine Ratio 17 (6-26); Blood Urea Nitrogen 20 mg/dL (8-23); Carbon Dioxide 30 mEq/L (23-29); Chloride 100 mEq/L (98-107); Glucose 471 mg/dL (70-105); Osmolality,Calculated 303 (280-300); Potassium 5.4 mEq/L (3.5-5.1); Sodium 135 mEq/L (136-145); eGFR For Non-African Americans 46 (> 60)
[2018-09-09 16:03] LABS: Troponin I < 0.03 ng/mL (< 0.04)
[2018-09-09] MEDS ORDERED: 0.9 % Sodium Chloride 500 ML IVC ONE (16:08)
[2018-09-09] MEDS ORDERED: Insulin Regular, Human 100 UNIT/ML IV ONE (16:18)
[2018-09-09] MEDS ORDERED: Nitroglycerin 0.4 MG TAB.SUBL SL PRN (18:10)
[2018-09-09] MEDS ORDERED: *HR* HYDROcodone/Acet 5/325 mg TABLET PO PRN (18:10)
[2018-09-09] MEDS ORDERED: NON-FORMULARY MEDICATION 1 EACH EACH (Alendronate Sodium [Alendronate Sodium] 70 MG) PO SCH (18:10)
[2018-09-09] MEDS ORDERED: Melatonin 3 MG TABLET PO SCH (21:42)
[2018-09-09] MEDS: Budesonide/Formoterol 160/4.5 1 PUFF INH IH SCH (21:44)
[2018-09-09] MEDS ORDERED: Insulin DETEMIR 100 UNIT/ML per UNIT SQ ONE (21:45)
[2018-09-09] MEDS: Gabapentin 300 MG CAPSULE PO SCH (21:54)
[2018-09-10 07:25] VITALS: BP 127/80
[2018-09-10] MEDS: Gabapentin 300 MG CAPSULE PO SCH (08:30)
[2018-09-10] MEDS ORDERED: CLOBETASOL PROPIONATE 15 GM TUBE TP SCH (09:00)
[2018-09-10] MEDS ORDERED: Cholecalciferol (D-3) 1,000 UNIT TABLET PO SCH (09:00)
[2018-09-10] MEDS ORDERED: ARIPiprazole 5 MG TABLET PO SCH (09:00)
[2018-09-10] MEDS ORDERED: Aspirin Enteric Coated 81 MG Tablet PO SCH (09:00)
[2018-09-10] MEDS ORDERED: Insulin DETEMIR 100 UNIT/ML X5UNITS SQ SCH (09:00)
[2018-09-10] MEDS ORDERED: Furosemide 20 MG TABLET PO SCH (09:00)
--- NOTE | 2018-09-10 09:56 | Internal Med History&Physical ---
Date of Encounter: 09/10/18 Time of Encounter: 09:25 Assessment and Plan (1) Chest pain Current visit: Yes Status: Acute Appears chest wall in origin. Doubt myocardial ischemia from history and physical. Qualifiers: Chest pain type: precordial pain Qualified Code(s): R07.2 - Precordial pain (2) CKD (chronic kidney disease) stage 3, GFR 30-59 ml/min Current visit: No Status: Chronic Creatinine slightly higher at 1.20 from 05/23/2018 level of 1.11. Internal Medicine - H&P: HPI Chief complaint: Chest pain Admitted From: Emergency Dept Plans for Post Hospital Care: Home History of present illness: Ms. Rowe is a 63 year old female who came to emergency room stating she had sudden onset of sharp chest pain in her mid sternal area while folding clothes the evening of September 08. The pain lasted approximately 5 minutes and then significantly lessened but did not completely resolve. She awakened the following morning and had recurrent episodes that were slightly less severe. She states there was slight dyspnea associated but no coughing. She came to emergency room and was evaluated and admitted to [facility] for ongoing care needs. She states she is pain-free at the present time. She reports previous similar episodes of pain approximately one week ago. She occasionally gets discomfort on exertion but describes it as a different type of chest pain. She has history of hypertension and known ASHD status post [place] 1994. She had stents placed 2004 in 2012. She had 1 vessel CABG October 2016 in [place]. She had a heart catheter 04/21/2018 at [facility] which showed LMCA free of disease, 100% stenosis in the proximal LAD with in-stent restenosis. The FREEMAN to LAD graft was patent. The circumflex was angiographically free of disease and first marginal branch had minimal disease. There was 70% stenosis in the mid ramus. The RCA showed 40-50% stenosis in the right PDA without thrombus present. LVEF was 60%. Echocardiogram 04/20/2018 showed LVEF of 60-65% with mild LV diastolic dy sfunction with E/A ratio of 0.70. No significant valvular abnormalities were seen. Past Med Surg Social Fam HX - Past Medical History Medical history: arthritis, cardiomyopathy, CHF, COPD, coronary artery disease, diabetes, hyperlipidemia, hypertension, myocardial infarction, renal disease Additional medical history: left broken foot. ULCER TO RIGHR FOOT. LEFT FOOT FX AND NOT HEALING WELL. Psychiatric history: anxiety, depression - Past Surgical History Surgical History: angioplasty/stent, appendectomy, cholecystectomy, coronary bypass (CABG), hysterectomy, orthopedic, other Additional surgical history: hardware placement to left foot. 2 CARDIAC STENTS. CARDIAC BYPASS - Social History Smoking Status: Never smoker Smokeless Tobacco Status: No Alcohol use: none Drug use: none - Family History Daughter Living Status: Still Living Internal Medicine - H&P: Meds Alendronate Sodium 70 mg PO QWEEK 10/17/15 [History] Aspirin Enteric Coated [Aspirin EC] 81 mg PO DAILY 07/25/17 [History] Carvedilol 12.5 mg PO BID 07/25/17 [History] Citalopram Hydrobromide [Citalopram HBr] 20 mg PO DAILY 07/25/17 [History] Nitroglycerin [Nitrostat] 0.4 mg SL AD 07/25/17 [History] Insulin ASPART [NovoLOG] 15 - 30 unit SQ TIDWM 11/16/17 [History] Atorvastatin [Lipitor] 40 mg PO DAILY 04/19/18 [History] Clopidogrel [Plavix] 75 mg PO DAILY 04/19/18 [History] Pramipexole [Mirapex] 0.25 mg PO HS 04/19/18 [History] Zolpidem Tartrate 10 mg PO HS 04/19/18 [History] Budesonide/Formoterol 160/4.5 [Symbicort 160/4.5] 2 puff IH BID 05/03/18 [History] Lisinopril [Zestril] 5 mg PO DAILY 05/03/18 [History] Fluticasone Propionate Nasal [Flonase] 1 spray IH DAILY 05/23/18 [History] Fluticasone/Vilanterol [Breo Ellipta 100-25 Mcg INH] 1 each IH DAILY 05/23/18 [History] ARIPiprazole [Abilify] 5 mg PO DAILY 06/05/18 [History] Calcium Carbonate [Calcium] 600 mg PO DAILY 06/05/18 [History] Clobetasol Propionate [Clobex] 59 ml TP DAILY 06/05/18 [History] Ergocalciferol (VITAMIN D2) [Drisdol (50,000 Unit)] 50,000 unit PO DAILY 06/05/18 [History] Furosemide [Lasix] 20 mg PO DAILY 06/05/18 [History] Gabapentin [Neurontin] 300 mg PO TID 06/05/18 [History] Insulin Glargine,Hum.rec.anlog [Lantus Solostar] 70 unit SQ BID 06/05/18 [History] Omeprazole [PriLOSEC] 40 mg PO DAILY 06/05/18 [History] Potassium Chloride [K-Tab ER] 20 meq PO DAILY 06/05/18 [History] Pramipexole Di-HCl [Pramipexole Dihydrochloride] 0.25 mg PO HS 06/05/18 [History] Tramadol HCl [Ultram] 50 mg PO QID PRN 06/05/18 [History] Cyclobenzaprine [Flexeril] 5 mg PO TID #20 tablet 06/24/18 [Rx] HYDROcodone/Acet 5/325 mg [[place] 5-325 mg] 1 tab PO Q6H PRN 3 Days #10 tab 06/24/18 [Rx] Allergy/AdvReac Type Severity Reaction Status Date / Time promethazine [From Phenergan] Allergy Confusion Verified 09/09/18 15:10 venlafaxine [From Effexor] Allergy Nausea Verified 09/09/18 15:10 All Systems PM: A 10-system review of systems was performed and is negative for pertinent findings except as documented above in the HPI. Review of systems: Review of systems from her May 2018 [facility] hospitalization were reviewed and revised as below. Gen.: Her weight has increased from 117.934 kg on 05/23/2018 to 128.82 kg on admission. Cardiovascular: As per history of present illness Respiratory: She is a lifelong nonsmoker. She has a diagnosis of asthma. She has BLANCA and wears CPAP but does not use home oxygen. GI: She is status post cholecystectomy. She has GERD but denies disorders of her liver or exocrine pancreas. : She has CKD stage III and follows with Dr. Steward. She denies other kidney or bladder disorders. Neurologic: She has RLS but denies large distribution strokes or seizures. Endocrine: She was diagnosed with DM 2 approximately 1990. She has hyperlipidemia but no known thyroid disease. She has history of low vitamin D level. Hematology/oncology. She had right breast cancer with a lumpectomy several years ago which was curative. She did not take postoperative radiation therapy or chemotherapy. She denies other internal malignancies or anemia. Psychiatric: She has depression and anxiety but denies other mental health issues. [place] skeletal: She has DJD , gout, and diagnosis of osteoporosis. She has diabetic peripheral neuropathy. She had injury to her left foot from "brittle bones" requiring surgical repair several years ago and generally wears a walking boot on the left foot. - Constitutional Vitals: Temp Pulse Resp BP Pulse Ox 97.6 F 69 16 127/80 96 09/10/18 07:24 09/10/18 07:24 09/10/18 07:24 09/10/18 07:24 09/10/18 07:24 Exam: Gen.: She is well-developed obese female resting In the side of bed who appears in no acute distress HEENT: Head is atraumatic and normocephalic. Eyes: EOMI. There is no scleral icterus. Mouth: Mucosa is moist. Neck: Supple and nontender. There is no thyromegaly or adenopathy noted. Heart: Regular without murmurs gallops or ectopics Lungs: No wheezes or crackles are heard. Chest: She has significant tenderness in her costosternal joints stating "that is the pain" on chest wall compression. Abdomen: Soft and nontender. No masses or guarding are noted. Extremities: There is no cyanosis edema or clubbing noted of the right foot. Dorsalis pedis and posterior tibial pulses are trace palpable. The left foot has a walking boot in place which I did not remove. She has minimal DJD changes of her hands. Neurologic: Mental status: She is talkative and a good historian. Cranial nerves: Smile is symmetric. Forehead wrinkles bilaterally. Tongue protrudes midline. EOMI. Motor: There is no pronator drift. Cerebellar: Finger to nose is intact bilaterally. Skin: Warm and dry Internal Med - H&P Results - Labs CBC & Chem 7: 09/09/18 15:31 09/09/18 15:31 Labs: Short CBC 09/09/18 Range/Units 15:31 WBC 4.5 (4.3-11.1) K/mcL Hgb 12.7 (11.5-15.4) g/dL Hct 37.8 (35.3-44.9) % Plt Count 124 L (140-400) K/mcL Neutrophils # 2.8 (1.6-8.9) K/mcL BMP 09/09/18 15:31 Sodium 135 L Potassium 5.4 H Chloride 100 Carbon Dioxide 30 H BUN 20 Creatinine 1.20 Glucose 471 H Calcium 9.0 Cardiac Enzymes 09/09/18 09/09/18 Range/Units 15:31 17:26 Troponin I < 0.03 < 0.03 (< 0.04) ng/mL - Impressions ITS Impressions Chest X-Ray 09/09/18 15:13 IMPRESSION: Low lung volumes without acute cardiopulmonary disease. D/ / 09/09/2018 16:12:30 Leighann Olivia MD / [facility] Interpreting Provider: Leighann Olivia MD
--- NOTE | 2018-09-10 10:05 | Discharge Summary ---
Orders not resulted at time of discharge: Pending orders 09/09/18 15:13 ECG 12 lead ECG [ECG] Stat Date of Encounter: 09/10/18 Time of Encounter: 09:25 - Discharge Diagnosis (1) Chest pain Priority: Primary Status: Acute Qualifiers: Chest pain type: precordial pain Qualified Code(s): R07.2 - Precordial pain (2) CKD (chronic kidney disease) stage 3, GFR 30-59 ml/min Priority: Secondary Status: Chronic Hospital course: Ms. Rowe is a 63 year old female who came to emergency room stating she had sudden onset of sharp chest pain in her mid sternal area while folding clothes the evening of September 08. The pain lasted approximately 5 minutes and then significantly lessened but did not completely resolve. She awakened the following morning and had recurrent episodes that were slightly less severe. She states there was slight dyspnea associated but no coughing. She came to emergency room and was evaluated and admitted to [facility] for ongoing care needs. Initial orders were written by the emergency room physician. I saw her on September 10 and performed the history physical and discharge. Repeat troponin in emergency room showed no elevation to indicate myocardial damage. When I saw her I felt the pain was likely of chest wall/costosternal joint origin. She was given prednisone prior to discharge with prescription for 3 additional days of prednisone. NSAIDs were not used because of chronic kidney disease. She will follow with her PCP Dr. Felder within 1 week. I told her injection of the costosternal joints with steroids could be considered if oral treatment did not provide adequate relief. - Time Spent with Patient Total time spent providing and/or coordinating discharge services: - Discharge Medications Prescriptions: predniSONE [PredniSONE] 10 mg PO BIDWM #6 tablet Home Medications: Alendronate Sodium 70 mg PO QWEEK 10/17/15 [History] Aspirin Enteric Coated [Aspirin EC] 81 mg PO DAILY 07/25/17 [History] Carvedilol 12.5 mg PO BID 07/25/17 [History] Citalopram Hydrobromide [Citalopram HBr] 20 mg PO DAILY 07/25/17 [History] Nitroglycerin [Nitrostat] 0.4 mg SL AD 07/25/17 [History] Insulin ASPART [NovoLOG] 15 - 30 unit SQ TIDWM 11/16/17 [History] Atorvastatin [Lipitor] 40 mg PO DAILY 04/19/18 [History] Clopidogrel [Plavix] 75 mg PO DAILY 04/19/18 [History] Pramipexole [Mirapex] 0.25 mg PO HS 04/19/18 [History] Zolpidem Tartrate 10 mg PO HS 04/19/18 [History] Budesonide/Formoterol 160/4.5 [Symbicort 160/4.5] 2 puff IH BID 05/03/18 [History] Lisinopril [Zestril] 5 mg PO DAILY 05/03/18 [History] Fluticasone Propionate Nasal [Flonase] 1 spray IH DAILY 05/23/18 [History] Fluticasone/Vilanterol [Breo Ellipta 100-25 Mcg INH] 1 each IH DAILY 05/23/18 [History] ARIPiprazole [Abilify] 5 mg PO DAILY 06/05/18 [History] Calcium Carbonate [Calcium] 600 mg PO DAILY 06/05/18 [History] Clobetasol Propionate [Clobex] 59 ml TP DAILY 06/05/18 [History] Ergocalciferol (VITAMIN D2) [Drisdol (50,000 Unit)] 50,000 unit PO DAILY 06/05 [History] Furosemide [Lasix] 20 mg PO DAILY 06/05/18 [History] Gabapentin [Neurontin] 300 mg PO TID 06/05/18 [History] Insulin Glargine,Hum.rec.anlog [Lantus Solostar] 70 unit SQ BID 06/05/18 [His tory] Omeprazole [PriLOSEC] 40 mg PO DAILY 06/05/18 [History] Potassium Chloride [K-Tab ER] 20 meq PO DAILY 06/05/18 [History] Pramipexole Di-HCl [Pramipexole Dihydrochloride] 0.25 mg PO HS 06/05/18 [ History] Tramadol HCl [Ultram] 50 mg PO QID PRN 06/05/18 [History] Cyclobenzaprine [Flexeril] 5 mg PO TID #20 tablet 06/24/18 [Rx] HYDROcodone/Acet 5/325 mg [Welsh 5-325 mg] 1 tab PO Q6H PRN 3 Days #10 tab 06/24/18 [Rx] predniSONE [PredniSONE] 10 mg PO BIDWM #6 tablet 09/10/18 [Rx] Allergies/Adverse Reactions: Allergy/AdvReac Type Severity Reaction Status Date / Time promethazine [From Phenergan] Allergy Confusion Verified 09/09/18 15:10 venlafaxine [From Effexor] Allergy Nausea Verified 09/09/18 15:10 Date of admission: 09/09/18 18:10 Primary care physician: Reji Felder DO - Constitutional Vitals: Temp Pulse Resp BP Pulse Ox 97.6 F 69 16 127/80 96 09/10/18 07:24 09/10/18 07:24 09/10/18 07:24 09/10/18 07:24 09/10/18 07:24 - Patient Status Disposition: Home, Self-Care Condition: Fair - Discharge Instructions Follow Up With: Reji Felder DO [Primary Care Provider] - 1 week - Diet and Activity Activity: resume usual activities as tolerated Diet: diabetic diet
[2018-09-10] MEDS: Budesonide/Formoterol 160/4.5 1 PUFF INH IH SCH (10:09)
[2018-09-10] MEDS ORDERED: predniSONE 10 MG TABLET PO ONE (10:15)
[2018-09-11] MEDS ORDERED: CLOBEX TP SCH (09:00)
== END 2018-09-10 11:01 | disposition home or self-care (01) ==
LOC: EMEROOPIK 15:09 → INPPIK 15:09 → UNDODISIN 09-10 11:01
PROVIDERS: ADMIT Internal Medicine; ATTEND Internal Medicine

== ENCOUNTER 2018-09-25 23:27 | Observation (INO) ==
--- NOTE | 2018-09-25 23:41 | Emergency Department Note ---
Disposition Clinical Impression: Generalized weakness, Hyperglycemia, Hyponatremia Disposition: Admitted As Inpatient Condition: Fair Referrals: Reji Felder DO [Primary Care Provider] - Forms: ED Satisfaction Letter General Adult HPI - General Chief complaint: ED Dizziness Stated complaint: weak /dizzy Time Seen by Provider: 09/25/18 23:28 Source: patient, EMS Mode of arrival: EMS Limitations: no limitations Nursing Notes Reviewed: Yes Vital Signs Reviewed: Yes - History of Present Illness HPI Narrative: Patient presents the ED via EMS with complaint of feeling weak and shaky. States she started feeling bad around noon today. She states that her legs feel weak as if they are not going to hold her. This has been going on for 4-5 days. States she has noticed some tremors in her hands but this is actually been going on for one month. She also reports feeling lightheaded and some subjective chills. Denies any fever. She has had nausea but no vomiting, diarrhea or constipation. No abdominal pain or chest pain. No shortness of breath. She has had a cough and some sneezing as well as some postnasal drip. She states she felt similar a few weeks ago and was here in the hospital overnight. She states they "checked out her heart and lungs" and sent her home. She has not followed up with her PCP since that time but does have an appo intment with him on October 18. She normally uses a walker to ambulate and has for the past several years. Prior to that at one point she did require use of a wheelchair due to generalized weakness. She denies any focal numbness, tingling or weakness in her arms or her legs. Fingerstick glucose was 385 per EMS. Patient is a diabetic and states her sugar was higher earlier in the day before taking her most recent dose of insulin. States her sugars have been anywhere from the 200s to 300s recently. She also has CHF, COPD and CAD with prior bypass surgery and stents. She also has high blood pressure and high cholesterol. She denies any recent falls, travel or sick contacts. Pain Scale: 0 - Related Data Home Medications Medication Instructions Recorded Confirmed Alendronate Sodium 70 mg PO QWEEK 10/17/15 09/26/18 Aspirin Enteric Coated [Aspirin EC] 81 mg PO DAILY 07/25/17 09/26/18 Carvedilol 12.5 mg PO BID 07/25/17 09/26/18 Citalopram Hydrobromide 20 mg PO DAILY 07/25/17 09/26/18 [Citalopram HBr] Nitroglycerin [Nitrostat] 0.4 mg SL AD 07/25/17 09/26/18 Insulin ASPART [NovoLOG] 15 - 30 unit SQ TIDWM 11/16/17 09/26/18 Atorvastatin [Lipitor] 40 mg PO DAILY 04/19/18 09/26/18 Clopidogrel [Plavix] 75 mg PO DAILY 04/19/18 09/26/18 Pramipexole [Mirapex] 0.25 mg PO HS 04/19/18 09/26/18 Zolpidem Tartrate 5 mg PO HS 04/19/18 09/26/18 Budesonide/Formoterol 160/4.5 2 puff IH BID 05/03/18 09/26/18 [Symbicort 160/4.5] Lisinopril [Zestril] 10 mg PO DAILY 05/03/18 09/26/18 Fluticasone Propionate Nasal 1 spray IH DAILY 05/23/18 09/26/18 [Flonase] ARIPiprazole [Abilify] 15 mg PO DAILY 06/05/18 09/26/18 Ergocalciferol (VITAMIN D2) 50,000 unit PO DAILY 06/05/18 09/26/18 [Drisdol (50,000 Unit)] Furosemide [Lasix] 20 mg PO DAILY 06/05/18 09/26/18 Omeprazole [PriLOSEC] 40 mg PO DAILY 06/05/18 09/26/18 Potassium Chloride [K-Tab ER] 20 meq PO DAILY 06/05/18 09/26/18 Pramipexole Di-HCl [Pramipexole 0.25 mg PO HS 06/05/18 09/26/18 Dihydrochloride] DULoxetine [Cymbalta] 20 mg PO DAILY 09/26/18 09/26/18 Fluticasone/Salmeterol [Advair 1 each IH 09/26/18 250-50 Diskus] Insulin Degludec [Tresiba 80 - 100 unit SQ DAILY 09/26/18 09/26/18 Flextouch U-200] Lansoprazole [Prevacid] 30 mg PO DAILY 09/26/18 09/26/18 Melatonin 10 mg PO HS 09/26/18 09/26/18 Pregabalin [Lyrica] 100 mg PO TID 09/26/18 09/26/18 Allergies Allergy/AdvReac Type Severity Reaction Status Date / Time promethazine [From Phenergan] Allergy Confusion Verified 09/09/18 15:10 venlafaxine [From Effexor] Allergy Nausea Verified 09/09/18 15:10 Constitutional: Reports: as per HPI, weakness. Denies: fever, chills, weight change Eyes: Denies: eye pain, eye discharge, vision change ENT ED: Reports: congestion. Denies: ear pain, throat pain, dental pain, hearing loss, epistaxis, dysphagia Cardiovascular: Denies: chest pain, palpitations, dyspnea on exertion, edema, syncope Respiratory: Reports: cough. Denies: dyspnea, wheezes, sputum production Gastrointestinal: Reports: nausea. Denies: abdominal pain, vomiting, diarrhea, constipation, hematemesis, melena, hematochezia Genitourinary: Denies: dysuria, frequency, hematuria, discharge Musculoskeletal: Denies: back pain, neck pain, arthralgia, myalgia Integumentary: Denies: rash, abrasion, lesions Neurological: Reports: as per HPI, other (lightheaded). Denies: headache, weakness, numbness, paresthesias, confusion, abnormal gait, vertigo Psychiatric: Denies: anxiety, depression, suicidal thoughts, homicidal thoughts, auditory hallucinations, visual hallucinations Endocrine: Denies: fatigue Hematological/Lymphatic: Denies: easy bleeding, easy bruising Allergic/Immunologic: Denies: facial swelling, urticaria Past Medical History - Past Medical History Medical history: Reports: arthritis, cardiomyopathy, CHF, COPD, coronary artery disease, diabetes, hyperlipidemia, hypertension, myocardial infarction, renal disease Surgical history: Reports: angioplasty/stent, appendectomy, cholecystectomy, coronary bypass (CABG), hysterectomy, orthopedic, other Psychiatric history: Reports: anxiety, depression MANAGER SERVICING history: Reports: no MANAGER SERVICING history - Social History Smoking Status: Never smoker Smokeless Tobacco Status: No Alcohol use: Reports: none Drug use: Reports: none Physical Exam - General Limitations: no limitations General appearance: alert, in no apparent distress, obese - Head Head exam: atraumatic, normocephalic, normal inspection - Eye Eye exam: Present: normal appearance, PERRL, EOMI - ENT ENT exam: normal exam, normal oropharynx, mucous membranes moist - Neck Neck exam: Present: normal inspection, full ROM, trachea midline - Chest Chest inspection: Present: normal inspection, symmetric chest wall rise - Respiratory Respiratory exam: Present: normal lung sounds bilaterally - Cardiovascular Cardiovascular exam: Present: regular rate, normal rhythm, normal heart sounds - Abdominal Exam Abdominal exam: Present: soft, Non-Tender. Absent: tenderness, distention, guarding, rebound, rigidity - Expanded Upper Extremity Exam Shoulder exam: Present: normal inspection, full ROM Arm exam: Present: normal inspection, full ROM Elbow exam: Present: normal inspection, full ROM Forearm/Wrist exam: Present: normal inspection, full ROM Hand exam: Present: normal inspection, full ROM Vascular exam: Normal: capillary refill, radial pulse - Expanded Lower Extremity Exam Hip/Pelvis exam: Present: normal inspection, full ROM Upper leg exam: Present: normal inspection, full ROM Knee exam: Present: normal inspection, full ROM Lower leg exam: Present: normal inspection, full ROM Ankle exam: Present: normal inspection, full ROM Foot/toe exam: Present: normal inspection, full ROM, other (orthopedic boot on L foot, remote injury) Neurovascular/Tendon exam: Present: normal capillary refill. Absent: motor de ficit, sensory deficit, tendon deficit - Back Exam Back exam: Present: normal inspection, full ROM. Absent: tenderness - Neurological Exam Neurological exam: Present: alert, oriented X3, CN II-XII intact. Absent: motor sensory deficit - Expanded Neurological Exam Motor strength - LUE: 5/5 Motor strength - RUE: 5/5 Motor strength - LLE: 4/5 (poor effort on command, 5/5 spontaneously) Motor strength - RLE: 4/5 (poor effort on command, 5/5 spontaneously) - Psychiatric Psychiatric exam: Present: normal affect, normal mood - Skin Skin exam: Present: warm, dry, intact, normal color Course Course Narrative: Patient presents to the ED complaining of feeling generally weak, shaky and lig htheaded for the past several hours. On arrival she is afebrile, nontoxic in appearance and hemodynamically stable although she is slightly clammy. EKG shows a sinus rhythm with no acute ischemic changes and she is not having any current chest pain. Fingerstick glucose was elevated per EMS. Will check additional lab work including electrolytes and troponin along with a chest x-ray as well as orthostatic vital signs. Review of records shows the patient was admitted from 09/09-09/10 with a chief complaint of chest pain. She had a normal EKG at that time and 2 negative troponins. Remainder of workup including chest x-ray were all normal at that time other than elevated glucose and potass ium that did improve with insulin and IV fluids. - Reevaluation(s) Reevaluation #1: Patient had a positive orthostatic drop in blood pressure on orthostatic vital sign measurements and felt very weak. Will give a fluid bolus. Labs and imaging are still pending at this time. Patient is otherwise resting comfortably. Time: 00:52 Reevaluation #2: Was notified that lab sample was hemolyzed and has just been redrawn. VBG shows a normal pH. No other laboratory studies are yet available. Patient is now complaining of headache. Will give Tylenol. Time: 01:35 Reevaluation #3: Repeat orthostatic vital signs after 500 mL fluid bolus still reveals a drop in blood pressure upon sitting that slowly recovers during standing and lying again. Patient did report feeling some lightheadedness during this testing. Chest x-ray was normal. Laboratory studies did not show any leukocytosis, normal pH and a negative troponin. She is mildly hyponatremic and also has an elevated glucose of 312. Will continue with IV fluids. Discussed with patient admission for overnight monitoring and repeat laboratory testing in a.m. with possible evaluation by PT if she still feeling overall weak. Patient is in agreement. Will contact the hospitalist. Time: 02:16 Additional Reevaluation(s): 0240 - I spoke to Dr. Peralta, hospitalist professional golf tournament player who has accepted the patient. Vital Signs Temperature 97.5 F L 09/25/18 23:29 Pulse Rate 89 09/25/18 23:29 Respiratory Rate 20 09/25/18 23:29 Blood Pressure 128/66 09/25/18 23:29 O2 Sat by Pulse Oximetry 92 09/25/18 23:29 Temperature 97.5 F L 09/25/18 23:29 Pulse Rate 92 09/26/18 00:37 Respiratory Rate 18 09/26/18 00:37 Blood Pressure 167/77 09/26/18 00:37 O2 Sat by Pulse Oximetry 94 09/26/18 00:37 Oxygen Delivery Oxygen Delivery Room Air Medical Decision Making - Medical Records Medical records reviewed: Yes I reviewed the patient's medical records. - Lab Data Lab results reviewed: Yes I reviewed the patient's lab results. Result diagrams: 09/26/18 01:25 09/26/18 01:25 Lab Results 09/26/18 09/26/18 09/26/18 Range/Units 00:48 01:25 01:25 WBC 9.4 (4.3-11.1) K/mcL RBC 4.53 (3.82-4.97) M/mcL Hgb 13.0 (11.5-15.4) g/dL Hct 37.6 (35.3-44.9) % MCV 83.0 (83.0-100.0) fL MCH 28.7 (28.0-33.3) pg MCHC 34.6 (31.6-35.5) g/dL RDW 12.8 (11.5-14.5) % Plt Count 133 L (140-400) K/mcL MPV 11.4 (9.4-12.4) fL Immature Gran % 0.3 (0-4) % Seg Neutrophils % 75.8 % Lymphocytes % 15.9 % Monocytes % 7.5 % Eosinophils % 0.2 % Basophils % 0.3 % Neutrophils # 7.1 (1.6-8.9) K/mcL Lymphocytes # 1.5 (0.6-4.6) K/mcL Monocytes # 0.7 (0.0-1.3) K/mcL Eosinophils # 0.0 (0.0-0.6) K/mcL Basophils # 0.0 (0.0-0.2) K/mcL VBG pH 7.42 (7.32-7.42) pH Units VBG pCO2 44 (41-51) mmHg VBG pO2 99 H (25-50) mmHg VBG HCO3 28 H (21-27) mEq/L Sodium 128 L (136-145) mEq/L Potassium 4.3 (3.5-5.1) mEq/L Chloride 94 L (98-107) mEq/L Carbon Dioxide 26 (23-29) mEq/L BUN 30 H (8-23) mg/dL Creatinine 1.12 (0.60-1.20) mg/dL Est GFR ( Amer) 60 (> 60) Est GFR (Non-Af Amer) 49 L (> 60) BUN/Creatinine Ratio 27 H (6-26) Glucose 312 H (70-105) mg/dL Calculated Osmolality 284 (280-300) Lactic Acid (0.5-2.2) mmol/L Calcium 8.9 (8.6-10.3) mg/dL Troponin I < 0.03 (< 0.04) ng/mL B-Natriuretic Peptide (Less than 100) pg/mL Beta-Hydroxybutyric Acd (0.02-0.27) mmol/L 09/26/18 09/26/18 09/26/18 Range/Units 01:25 01:25 01:25 WBC (4.3-11.1) K/mcL RBC (3.82-4.97) M/mcL Hgb (11.5-15.4) g/dL Hct (35.3-44.9) % MCV (83.0-100.0) fL MCH (28.0-33.3) pg MCHC (31.6-35.5) g/dL RDW (11.5-14.5) % Plt Count (140-400) K/mcL MPV (9.4-12.4) fL Immature Gran % (0-4) % Seg Neutrophils % % Lymphocytes % % Monocytes % % Eosinophils % % Basophils % % Neutrophils # (1.6-8.9) K/mcL Lymphocytes # (0.6-4.6) K/mcL Monocytes # (0.0-1.3) K/mcL Eosinophils # (0.0-0.6) K/mcL Basophils # (0.0-0.2) K/mcL VBG pH (7.32-7.42) pH Units VBG pCO2 (41-51) mmHg VBG pO2 (25-50) mmHg VBG HCO3 (21-27) mEq/L Sodium (136-145) mEq/L Potassium (3.5-5.1) mEq/L Chloride (98-107) mEq/L Carbon Dioxide (23-29) mEq/L BUN (8-23) mg/dL Creatinine (0.60-1.20) mg/dL Est GFR ( Amer) (> 60) Est GFR (Non-Af Amer) (> 60) BUN/Creatinine Ratio (6-26) Glucose (70-105) mg/dL Calculated Osmolality (280-300) Lactic Acid 0.8 (0.5-2.2) mmol/L Calcium (8.6-10.3) mg/dL Troponin I (< 0.04) ng/mL B-Natriuretic Peptide 46 (Less than 100) pg/mL Beta-Hydroxybutyric Acd 0.17 (0.02-0.27) mmol/L - Radiology Data Radiology results reviewed: Yes I reviewed the patient's radiology results. - EKG Data EKG #1 EKG shows normal: sinus rhythm Rate: normal Rhythm: NSR Chromo/QRS: normal When compared to previous EKG there are: no significant changes Interpretation: no acute changes, unchanged when compared to prior tracing (date) (09/09/18), nonspecific ST-T wave changes
[2018-09-26] MEDS ORDERED: 0.9 % Sodium Chloride 500 ML IVC ONE (00:13)
[2018-09-26 00:54] LABS: VBG HCO3 28 mEq/L (21-27); VBG PCO2 44 mmHg (41-51); VBG PH 7.42 pH Units (7.32-7.42); VBG PO2 99 mmHg (25-50)
[2018-09-26 01:34] LABS: Basophils % 0.3 %; Eosinophils % 0.2 %; Hematocrit 37.6 % (35.3-44.9); Immature Granulocytes % 0.3 % (0-4); Lymphocytes # 1.5 K/mcL (0.6-4.6); Lymphocytes % 15.9 %; Mean Corpuscular HGB Conc 34.6 g/dL (31.6-35.5); Mean Corpuscular Hemoglobin 28.7 pg (28.0-33.3); Mean Platelet Volume 11.4 fL (9.4-12.4); Monocytes # 0.7 K/mcL (0.0-1.3); Monocytes % 7.5 %; Neutrophils # 7.1 K/mcL (1.6-8.9); Platelet Count 133 K/mcL (140-400); Red Blood Count 4.53 M/mcL (3.82-4.97); Red Cell Distribution Width 12.8 % (11.5-14.5); Segmented Neutrophils % 75.8 %
[2018-09-26] MEDS ORDERED: Acetaminophen 325 MG TABLET PO ONE (01:57)
[2018-09-26 01:59] LABS: BUN/Creatinine Ratio 27 (6-26); Blood Urea Nitrogen 30 mg/dL (8-23); Calcium 8.9 mg/dL (8.6-10.3); Carbon Dioxide 26 mEq/L (23-29); Chloride 94 mEq/L (98-107); Glucose 312 mg/dL (70-105); Osmolality,Calculated 284 (280-300); Potassium 4.3 mEq/L (3.5-5.1); Sodium 128 mEq/L (136-145); Troponin I < 0.03 ng/mL (< 0.04); eGFR For Non-African Americans 49 (> 60)
[2018-09-26] MEDS ORDERED: 0.9 % Sodium Chloride 1,000 ML IVC SCH (02:15)
[2018-09-26] MEDS ORDERED: Naloxone 0.4 MG/ML INJ IVP PRN ×2 (02:40→02:51)
[2018-09-26] MEDS ORDERED: Nitroglycerin 0.4 MG TAB.SUBL SL SCH (02:51)
[2018-09-26] MEDS ORDERED: NON-FORMULARY MEDICATION 1 EACH EACH (Alendronate Sodium [Alendronate Sodium] 70 MG) PO SCH (02:51)
[2018-09-26] MEDS ORDERED: Nitroglycerin 0.4 MG TAB.SUBL SL PRN (03:35)
[2018-09-26] MEDS: 0.9 % Sodium Chloride 1,000 ML IVC SCH ×4 (03:50→20:00)
[2018-09-26] MEDS ORDERED: Dextrose Gel 15 GM/37.5 ML TUBE PO PRN ×2 (06:51)
[2018-09-26] MEDS ORDERED: D5% in Water 1,000 ML IVC PRN (06:51)
[2018-09-26] MEDS ORDERED: *HR* Dextrose 50 % in Water (Syg) 50 ML SYRINGE IVP PRN (06:51)
[2018-09-26] MEDS ORDERED: NON-FORMULARY MEDICATION 1 EACH EACH (Insulin Aspart 0 UNIT) SQ SCH (08:00)
[2018-09-26] MEDS: Pregabalin 50 MG CAPSULE PO SCH ×3 (08:57→21:04)
[2018-09-26] MEDS: ARIPiprazole 5 MG TABLET PO SCH (08:57)
[2018-09-26] MEDS: Furosemide 20 MG TABLET PO SCH (08:58)
[2018-09-26] MEDS: Aspirin Enteric Coated 81 MG Tablet PO SCH (08:58)
[2018-09-26] MEDS ORDERED: CITALOPRAM HYDROBROMIDE 20 MG PO SCH (09:00)
[2018-09-26] MEDS ORDERED: Insulin DETEMIR 100 UNIT/ML X5UNITS SQ SCH (09:00)
[2018-09-26] MEDS ORDERED: Cholecalciferol (D-3) 1,000 UNIT TABLET PO SCH ×2 (09:00→10:30)
[2018-09-26] MEDS: Insulin LISPRO 300 UNITS/3 ML VIAL SQ SCH ×3 (09:05→16:46)
[2018-09-26] MEDS: Fluticasone Propionate Nasal 50 MCG/SPRAY BOTTLE NS SCH (09:06)
[2018-09-26] MEDS: Budesonide/Formoterol 160/4.5 1 PUFF INH IH SCH ×2 (10:29→22:25)
--- NOTE | 2018-09-26 11:34 | Internal Med History&Physical ---
Date of Encounter: 09/26/18 Time of Encounter: 11:05 Assessment and Plan (1) Azotemia Current visit: Yes Status: Acute BUN and creatinine are 30 and 1.12 respectively with estimated GFR 49. IV fluids have been ordered. Labs will be checked in a.m. (2) DM type 2 (diabetes mellitus, type 2) Current visit: No Status: Chronic Hemoglobin A1c was 10.0% on 05/24/2018. Continue basal insulin and Accu-Cheks with SSI. Qualifiers: Diabetes mellitus mcfp insulin use: with intermediate school teacher use Diabetes mellitus complication status: without complication Qualified Code(s): E11.9 - Type 2 diabetes mellitus without complications; Z79.4 - oysterman (current) use of insulin (3) CKD (chronic kidney disease) stage 3, GFR 30-59 ml/min Current visit: No Status: Chronic Monitor renal indices. (4) Hyponatremia Current visit: Yes Status: Acute Asymptomatic. Possibly secondary to furosemide. Monitor labs. (5) Hypertension Current visit: Yes Status: Chronic Continue Coreg and lisinopril. Qualifiers: Hypertension type: essential hypertension Qualified Code(s): I10 - Essential (primary) hypertension Internal Medicine - H&P: HPI Chief complaint: Shaking and weakness Admitted From: Emergency Dept Plans for Post Hospital Care: Home History of present illness: Ms. Rowe is a 63 year old female came to emergency room stating she noted she did not feel well onset September 24. The following morning she awakened with shaking to the point she occasionally dropped things she was attempting to hold. Her legs felt heavy and she had arthralgias involving her legs especially her knees. She had a headache. She came to emergency room and was evaluated and admitted to [facility] floor for ongoing care needs. She states the shaking has improved but she still does not feel well. She denies dyspnea cough vomiting or diarrhea. Past Med Surg Social Fam HX - Past Medical History Medical history: arthritis, cardiomyopathy, CHF, COPD, coronary artery disease, diabetes, hyperlipidemia, hypertension, myocardial infarction, renal disease Additional medical history: left broken foot. ULCER TO RIGHT FOOT. LEFT FOOT FX AND NOT HEALING WELL. Psychiatric history: anxiety, depression - Past Surgical History Surgical History: angioplasty/stent, appendectomy, cholecystectomy, coronary bypass (CABG), hysterectomy, orthopedic, other Additional surgical history: hardware placement to left foot. 2 CARDIAC STENTS. CARDIAC BYPASS - Social History Smoking Status: Never smoker Smokeless Tobacco Status: No Alcohol use: none Drug use: none - Family History Daughter Living Status: Still Living Internal Medicine - H&P: Meds Alendronate Sodium 70 mg PO QWEEK 10/17/15 [History] Aspirin Enteric Coated [Aspirin EC] 81 mg PO DAILY 07/25/17 [History] Carvedilol 12.5 mg PO BID 07/25/17 [History] Citalopram Hydrobromide [Citalopram HBr] 20 mg PO DAILY 07/25/17 [History] Nitroglycerin [Nitrostat] 0.4 mg SL AD 07/25/17 [History] Insulin ASPART [NovoLOG] 15 - 30 unit SQ TIDWM 11/16/17 [History] Atorvastatin [Lipitor] 40 mg PO DAILY 04/19/18 [History] Clopidogrel [Plavix] 75 mg PO DAILY 04/19/18 [History] Pramipexole [Mirapex] 0.25 mg PO HS 04/19/18 [History] Zolpidem Tartrate 5 mg PO HS 04/19/18 [History] Budesonide/Formoterol 160/4.5 [Symbicort 160/4.5] 2 puff IH BID 05/03/18 [History] Lisinopril [Zestril] 10 mg PO DAILY 05/03/18 [History] Fluticasone Propionate Nasal [Flonase] 1 spray IH DAILY 05/23/18 [History] ARIPiprazole [Abilify] 15 mg PO DAILY 06/05/18 [History] Ergocalciferol (VITAMIN D2) [Drisdol (50,000 Unit)] 50,000 unit PO DAILY 06/05/18 [History] Furosemide [Lasix] 20 mg PO DAILY 06/05/18 [History] Omeprazole [PriLOSEC] 40 mg PO DAILY 06/05/18 [History] Potassium Chloride [K-Tab ER] 20 meq PO DAILY 06/05/18 [History] Pramipexole Di-HCl [Pramipexole Dihydrochloride] 0.25 mg PO HS 06/05/18 [History] DULoxetine [Cymbalta] 20 mg PO DAILY 09/26/18 [History] Fluticasone/Salmeterol [Advair 250-50 Diskus] 1 each IH 09/26/18 [History] Insulin Degludec [Tresiba Flextouch U-200] 80 - 100 unit SQ DAILY 09/26/18 [History] Lansoprazole [Prevacid] 30 mg PO DAILY 09/26/18 [History] Melatonin 10 mg PO HS 09/26/18 [History] Pregabalin [Lyrica] 100 mg PO TID 09/26/18 [History] Allergy/AdvReac Type Severity Reaction Status Date / Time promethazine [From Phenergan] Allergy Confusion Verified 09/09/18 15:10 venlafaxine [From Effexor] Allergy Nausea Verified 09/09/18 15:10 All Systems PM: A 10-system review of systems was performed and is negative for pertinent findings except as documented above in the HPI. Review of systems: Review of systems from her August 2018 [facility] hospitalization were reviewed and revised as below. Gen.: Her weight has increased from 117.934 kg on 05/23/2018 to 129.274 kg on admission. Cardiovascular: She was hospitalized at [facility] approximately 2 weeks ago with chest pain which was felt to be costosternal joint origin after evaluation. She was prescribed prednisone and the pain has resolved without recurrence. She has history of hypertension and known ASHD status post HI 1994. She had stents plac ed 2004 in 2013. She had 1 vessel CABG October 2016 in [place]. She had a heart catheter 04/21/2018 at [facility] which showed LMCA free of disease, 100% stenosis in the proximal LAD with in-stent restenosis. The FREEMAN to LAD graft was patent. The circumflex was angiographically free of disease and first marginal branch had minimal disease. There was 70% stenosis in the mid ramus. The RCA showed 40-50% stenosis in the right PDA without thrombus present. LVEF was 60%. Echocardiogram 04/20/2018 showed LVEF of 60-65% with mild LV diastolic dysfunction with E/A ratio of 0.70. No significant valvular abnormalities were seen. Respiratory: She is a lifelong nonsmoker. She has a diagnosis of asthma. She has BLANCA and wears CPAP but does not use home oxygen. GI: She is status post cholecystectomy. She has GERD but denies disorders of her liver or exocrine pancreas. : She has CKD stage III and follows with Dr. Steward. She denies other kidney or bladder disorders. Neurologic: She has RLS but denies large distribution strokes or seizures. Endocrine: She was diagnosed with DM 2 approximately 1990. She has hyperlipidemia but no known thyroid disease. She has history of low vitamin D level. Hematology/oncology. She had right breast cancer with a lumpectomy several years ago which was curative. She did not take postoperative radiation therapy or chemotherapy. She denies other internal malignancies or anemia. Psychiatric: She has depression and anxiety but denies other mental health issues. Musk skeletal: She has DJD , gout, and diagnosis of osteoporosis. She has diabetic peripheral neuropathy. She had injury to her left foot from "brittle bones" requiring surgical repair several years ago and generally wears a walking boot on the left foot. - Constitutional Vitals: Temp Pulse Resp BP Pulse Ox 98.5 F 80 14 143/83 96 09/26/18 06:55 09/26/18 06:55 09/26/18 10:29 09/26/18 06:55 09/26/18 10:29 Exam: Gen.: She is a well-developed overweight female resting comfortably in bed who appears in no acute distress HEENT: Head is atraumatic and normocephalic. Eyes: EOMI. There is no scleral icterus. Mouth: Mucosa is moist. Neck: Supple and nontender. There is no thyromegaly or adenopathy noted. Heart: Regular without murmurs gallops or ectopics Lungs: No wheezes or crackles are heard. Abdomen: Soft and nontender. No masses or guarding are noted. Extremities: He is wearing a walking boot on her left lower leg which I did not remove. There is no cyanosis edema or clubbing noted on the right leg. Dorsalis pedis and posttibial pulses are 1-2 over 2. Neurologic: Mental status: She is talkative and a good historian. Cranial nerves: Smile is symmetric. Forehead wrinkles bilaterally. Tongue protrudes midline. EOMI. Motor: There is no pronator drift. Cerebellar: Finger to nose is intact bilaterally. Skin: Warm and dry Internal Med - H&P Results - Labs CBC & Chem 7: 09/26/18 01:25 09/26/18 01:25 Labs: Short CBC 09/26/18 Range/Units 01:25 WBC 9.4 (4.3-11.1) K/mcL Hgb 13.0 (11.5-15.4) g/dL Hct 37.6 (35.3-44.9) % Plt Count 133 L (140-400) K/mcL Neutrophils # 7.1 (1.6-8.9) K/mcL BMP 09/26/18 01:25 Sodium 128 L Potassium 4.3 Chloride 94 L Carbon Dioxide 26 BUN 30 H Creatinine 1.12 Glucose 312 H Calcium 8.9 Cardiac Enzymes 09/26/18 Range/Units 01:25 Troponin I < 0.03 (< 0.04) ng/mL - ABG Interpretation ABG results: 09/26/18 00:48 VBG pH 7.42 VBG pCO2 44 VBG pO2 99 H VBG HCO3 28 H - Impressions ITS Impressions Chest X-Ray 09/25/18 23:41 IMPRESSION: No acute disease. D/ / Micky Lopez MD / Micky Lopez MD Interpreting Provider: Micky Lopez MD - VTE Reasons for not Prescribing Prophylaxis: Treatment not Indicated - Low risk for VTE
[2018-09-26 11:50] LABS: Bilirubin,Urine Negative (Negative); Blood,Urine Moderate (Negative); Clarity,Urine Cloudy (Clear); Color,Urine Dark Yellow (Yellow); Glucose,Urine (UA) 250 mg/dL (Normal); Ketones,Urine Negative (Negative); Leukocyte Esterase,Urine Small (Negative); Nitrite,Urine Negative (Negative); PH,Urine 5.5 pH Units (5.0-8.0); Protein,Urine 100 mg/dL (Neg-Trace); Specific Gravity,Urine 1.015 (1.010-1.025); Urobilinogen,Urine Normal (Normal)
[2018-09-26 11:59] LABS: RBC,Urine 15-30 per hpf (0-3); Squamous Epithelial Cell,Urine Few per lpf (None-Few); WBC,Urine 15-30 per hpf (0-3)
[2018-09-26 12:00] LABS: Bacteria,Urine Few per hpf (None-Few); Mucus,Urine Few (Few)
[2018-09-26] MEDS: Cholecalciferol (D-3) 1,000 UNIT TABLET PO SCH (13:20)
[2018-09-26] MEDS ORDERED: Ondansetron ODT 4 MG TAB.RAPDIS SL PRN (15:02)
[2018-09-26] MEDS: Acetaminophen 325 MG TABLET PO PRN (17:41)
[2018-09-26] MEDS ORDERED: PRAMIPEXOLE DI HCL PO SCH (21:00)
[2018-09-26] MEDS: cefTRIAXone 1,000 MG in Water for inj. (sterile) 20 ML 10 ML IVP SCH (21:03)
[2018-09-26] MEDS: Nystatin Cream 15 GM TUBE TP SCH (21:04)
[2018-09-26] MEDS: Melatonin 3 MG TABLET PO SCH (21:04)
[2018-09-26] MEDS: Insulin DETEMIR 100 UNIT/ML X5UNITS SQ SCH (21:04)
[2018-09-27 05:39] LABS: Basophils % 0.2 %; Hematocrit 36.8 % (35.3-44.9); Hemoglobin 12.3 g/dL (11.5-15.4); Immature Granulocytes % 0.4 % (0-4); Lymphocytes # 0.4 K/mcL (0.6-4.6); Lymphocytes % 4.6 %; Mean Corpuscular HGB Conc 33.4 g/dL (31.6-35.5); Mean Corpuscular Hemoglobin 28.2 pg (28.0-33.3); Mean Corpuscular Volume 84.4 fL (83.0-100.0); Mean Platelet Volume 11.1 fL (9.4-12.4); Monocytes # 0.5 K/mcL (0.0-1.3); Monocytes % 6.4 %; Neutrophils # 7.3 K/mcL (1.6-8.9); Platelet Count 110 K/mcL (140-400); Red Blood Count 4.36 M/mcL (3.82-4.97); Red Cell Distribution Width 13.1 % (11.5-14.5); Segmented Neutrophils % 88.4 %
[2018-09-27] MEDS: Acetaminophen 325 MG TABLET PO PRN ×2 (06:01→21:16)
[2018-09-27 06:04] LABS: Calcium 8.5 mg/dL (8.6-10.3); Potassium 4.3 mEq/L (3.5-5.1)
[2018-09-27] MEDS: 0.9 % Sodium Chloride 1,000 ML IVC SCH ×2 (07:13→13:12)
[2018-09-27] MEDS: Aspirin Enteric Coated 81 MG Tablet PO SCH (08:14)
[2018-09-27] MEDS: Furosemide 20 MG TABLET PO SCH ×2 (08:14→10:43)
[2018-09-27] MEDS: ARIPiprazole 5 MG TABLET PO SCH (08:14)
[2018-09-27] MEDS: Pregabalin 50 MG CAPSULE PO SCH ×3 (08:28→21:06)
[2018-09-27] MEDS: Nystatin Cream 15 GM TUBE TP SCH ×2 (08:28→21:07)
[2018-09-27] MEDS: Cholecalciferol (D-3) 1,000 UNIT TABLET PO SCH (08:28)
[2018-09-27] MEDS: Fluticasone Propionate Nasal 50 MCG/SPRAY BOTTLE NS SCH (08:29)
[2018-09-27] MEDS: Insulin LISPRO 300 UNITS/3 ML VIAL SQ SCH ×3 (08:30→16:42)
[2018-09-27] MEDS: Budesonide/Formoterol 160/4.5 1 PUFF INH IH SCH ×2 (10:14→22:46)
--- NOTE | 2018-09-27 12:24 | Internal Med Progress Note ---
Date of Encounter: 09/27/18 Time of Encounter: 12:15 - Assessment and plan (1) Azotemia Current Visit: Yes Status: Acute Assessment and plan: September 27. BUN and creatinine have risen to 35 and 1.58 respectively. Continue IV fluids and monitor labs. (2) DM type 2 (diabetes mellitus, type 2) Current Visit: No Status: Chronic Assessment and plan: September 27. Hemoglobin A1c was 10.0% on 05/24/2018. Continue basal insulin and Accu-Cheks with SSI. Qualifiers: Diabetes mellitus jail insulin use: with local intermodal truck driver use Diabetes mellitus complication status: without complication Qualified Code(s): E11.9 - Type 2 diabetes mellitus without complications; Z79.4 - exterminator helper (current) use of insulin (3) CKD (chronic kidney disease) stage 3, GFR 30-59 ml/min Current Visit: No Status: Chronic Assessment and plan: September 27. BUN and creatinine increased as per above. Continue to monitor renal indices. (4) Hyponatremia Current Visit: Yes Status: Acute Assessment and plan: September 27. Improved to 131. Continue to monitor. (5) Hypertension Current Visit: Yes Status: Chronic Assessment and plan: September 27. Lisinopril and Lasix were held because of hypotension. Continue to monitor blood pressure. Qualifiers: Hypertension type: essential hypertension Qualified Code(s): I10 - Essential (primary) hypertension (6) Urinary tract infection Current Visit: No Status: Acute Assessment and plan: September 27. Urine culture report pending. Continue empiric Rocephin. Add lactobacillus. Qualifiers: Urinary tract infection type: site unspecified Hematuria presence: with hematuria Qualified Code(s): N39.0 - Urinary tract infection, site not specified; R31.9 - Hematuria, unspecified - Subjective Interval history: September 27. She complains of nausea and pain in her left ankle. She spiked fever yesterday afternoon of 102.0. Blood cultures were drawn with results pending at present. She was started empirically on Rocephin. She denies vomiting, diarrhea, or dyspnea - Constitutional Vitals: Temp Pulse Resp BP Pulse Ox 98.4 F 73 18 93/51 95 09/27/18 11:43 09/27/18 11:43 09/27/18 11:43 09/27/18 11:43 09/27/18 11:43 Exam: She is lying in bed and appears in no acute distress. Her affect is cheerful. Her left ankle shows no erythema and trace edema present. I reviewed her medications and lab results. Internal Medicine: Result - Labs CBC & Chem 7: 09/27/18 05:33 09/27/18 05:33 Labs: Short CBC 09/27/18 Range/Units 05:33 WBC 8.2 (4.3-11.1) K/mcL Hgb 12.3 (11.5-15.4) g/dL Hct 36.8 (35.3-44.9) % Plt Count 110 L (140-400) K/mcL Neutrophils # 7.3 (1.6-8.9) K/mcL BMP 09/27/18 05:33 Sodium 131 L Potassium 4.3 Chloride 101 Carbon Dioxide 23 BUN 35 H Creatinine 1.58 H Glucose 265 H Calcium 8.5 L - VTE Reasons for not Prescribing Prophylaxis: Treatment not Indicated - Low risk for VTE Consult Discharge Plan - Plan Referrals: Reji Felder DO [Primary Care Provider] - 1 week
[2018-09-27] MEDS: Ondansetron ODT 4 MG TAB.RAPDIS SL PRN (16:42)
[2018-09-27] MEDS: cefTRIAXone 1,000 MG in Water for inj. (sterile) 20 ML 10 ML IVP SCH (18:34)
[2018-09-27] MEDS: Melatonin 3 MG TABLET PO SCH (21:06)
[2018-09-27] MEDS: Lactobacillus 1 EACH CAP.SPRINK PO SCH (21:06)
[2018-09-27] MEDS: Insulin DETEMIR 100 UNIT/ML X5UNITS SQ SCH (21:06)
[2018-09-28] MEDS: 0.9 % Sodium Chloride 1,000 ML IVC SCH ×2 (00:09→14:33)
[2018-09-28] MEDS: Acetaminophen 325 MG TABLET PO PRN ×2 (03:16→20:17)
[2018-09-28 06:18] LABS: Basophils % 0.2 %; Eosinophils # 0.1 K/mcL (0.0-0.6); Eosinophils % 1.1 %; Hemoglobin 10.8 g/dL (11.5-15.4); Immature Granulocytes % 0.2 % (0-4); Lymphocytes # 0.8 K/mcL (0.6-4.6); Lymphocytes % 16.2 %; Mean Corpuscular HGB Conc 32.7 g/dL (31.6-35.5); Mean Corpuscular Hemoglobin 28.3 pg (28.0-33.3); Mean Corpuscular Volume 86.6 fL (83.0-100.0); Mean Platelet Volume 11.4 fL (9.4-12.4); Monocytes # 0.5 K/mcL (0.0-1.3); Monocytes % 10.3 %; Neutrophils # 3.4 K/mcL (1.6-8.9); Red Blood Count 3.81 M/mcL (3.82-4.97); Red Cell Distribution Width 13.3 % (11.5-14.5)
[2018-09-28 06:44] LABS: Platelet Count 90 K/mcL (140-400)
[2018-09-28 06:47] LABS: Calcium 7.7 mg/dL (8.6-10.3); Potassium 4.1 mEq/L (3.5-5.1)
[2018-09-28] MEDS: Budesonide/Formoterol 160/4.5 1 PUFF INH IH SCH ×2 (09:18→21:44)
[2018-09-28] MEDS: Insulin LISPRO 300 UNITS/3 ML VIAL SQ SCH ×3 (10:16→16:47)
[2018-09-28] MEDS: Pregabalin 50 MG CAPSULE PO SCH ×3 (10:18→20:06)
[2018-09-28] MEDS: ARIPiprazole 5 MG TABLET PO SCH (10:18)
[2018-09-28] MEDS: Cholecalciferol (D-3) 1,000 UNIT TABLET PO SCH (10:18)
[2018-09-28] MEDS: Furosemide 20 MG TABLET PO SCH (10:18)
[2018-09-28] MEDS: Aspirin Enteric Coated 81 MG Tablet PO SCH (10:19)
[2018-09-28] MEDS: Lactobacillus 1 EACH CAP.SPRINK PO SCH ×2 (10:19→20:07)
[2018-09-28] MEDS: Nystatin Cream 15 GM TUBE TP SCH ×2 (10:20→20:09)
[2018-09-28] MEDS: Fluticasone Propionate Nasal 50 MCG/SPRAY BOTTLE NS SCH (10:25)
--- NOTE | 2018-09-28 15:00 | Internal Med Progress Note ---
Date of Encounter: 09/28/18 Time of Encounter: 14:50 - Assessment and plan (1) Azotemia Current Visit: Yes Status: Acute Assessment and plan: September 27. BUN and creatinine have risen to 35 and 1.58 respectively. Continue IV fluids and monitor labs. September 28. Creatinine has risen to 1.83 with estimated GFR decreasing to 28. Continue IV fluids and recheck labs in a.m. (2) DM type 2 (diabetes mellitus, type 2) Current Visit: No Status: Chronic Assessment and plan: September 27. Hemoglobin A1c was 10.0% on 05/24/2018. Continue basal insulin and Accu-Cheks with SSI. Qualifiers: Diabetes mellitus long term care pharmacist insulin use: with long term care pharmacist use Diabetes mellitus complication status: without complication Qualified Code(s): E11.9 - Type 2 diabetes mellitus without complications; Z79.4 - custodial (current) use of insulin (3) CKD (chronic kidney disease) stage 3, GFR 30-59 ml/min Current Visit: No Status: Chronic Assessment and plan: September 27. BUN and creatinine increased as per above. Continue to monitor renal indices. (4) Hyponatremia Current Visit: Yes Status: Acute Assessment and plan: September 27. Improved to 131. Continue to monitor. September 28. Sodium improved to 135. Continue present regimen. (5) Hypertension Current Visit: Yes Status: Chronic Assessment and plan: September 27. Lisinopril and Lasix were held because of hypotension. Continue to monitor blood pressure. September 28. Blood pressure remains stable off medication. Qualifiers: Hypertension type: essential hypertension Qualified Code(s): I10 - Essential (primary) hypertension (6) Urinary tract infection Current Visit: No Status: Acute Assessment and plan: September 27. Urine culture report pending. Continue empiric Rocephin. Add lactobacillus. September 28. Urine culture showed Escherichia coli. Continue Rocephin with lactobacillus. Anticipate discharge home tomorrow if stable. Qualifiers: Urinary tract infection type: site unspecified Hematuria presence: with hematuria Qualified Code(s): N39.0 - Urinary tract infection, site not specified; R31.9 - Hematuria, unspecified - Subjective Interval history: September 27. She complains of nausea and pain in her left ankle. She spiked fever yesterday afternoon of 102.0. Blood cultures were drawn with results pending at present. She was started empirically on Rocephin. She denies vomiting, diarrhea, or dyspnea September 28. She has no new complaints. - Constitutional Vitals: Temp Pulse Resp BP Pulse Ox 97.8 F 81 16 131/72 95 09/28/18 11:34 09/28/18 11:34 09/28/18 11:34 09/28/18 11:34 09/28/18 11:34 Exam: She is resting comfortably in bed and appears in no acute distress. She is more awake and talkative. I reviewed her medications and lab results. Internal Medicine: Result - Labs CBC & Chem 7: 09/28/18 06:10 09/28/18 06:10 Labs: Short CBC 09/28/18 Range/Units 06:10 WBC 4.7 (4.3-11.1) K/mcL Hgb 10.8 L D (11.5-15.4) g/dL Hct 33.0 L (35.3-44.9) % Plt Count 90 L (140-400) K/mcL Neutrophils # 3.4 (1.6-8.9) K/mcL BMP 09/28/18 06:10 Sodium 135 L Potassium 4.1 Chloride 106 Carbon Dioxide 22 L BUN 42 H Creatinine 1.83 H Glucose 194 H Calcium 7.7 L - VTE Reasons for not Prescribing Prophylaxis: Treatment not Indicated - Low risk for VTE Consult Discharge Plan - Plan Referrals: Reji Felder DO [Primary Care Provider] - 1 week
[2018-09-28] MEDS: cefTRIAXone 1,000 MG in Water for inj. (sterile) 20 ML 10 ML IVP SCH (18:23)
[2018-09-28] MEDS: Insulin DETEMIR 100 UNIT/ML X5UNITS SQ SCH (20:06)
[2018-09-28] MEDS: Melatonin 3 MG TABLET PO SCH (20:07)
[2018-09-29] MEDS: 0.9 % Sodium Chloride 1,000 ML IVC SCH ×3 (00:54→23:41)
[2018-09-29] MEDS: Insulin LISPRO 300 UNITS/3 ML VIAL SQ SCH ×3 (07:37→17:30)
[2018-09-29] MEDS: ARIPiprazole 5 MG TABLET PO SCH (08:38)
[2018-09-29] MEDS: Lactobacillus 1 EACH CAP.SPRINK PO SCH ×2 (08:39→20:26)
[2018-09-29] MEDS: Aspirin Enteric Coated 81 MG Tablet PO SCH (08:39)
[2018-09-29] MEDS: Fluticasone Propionate Nasal 50 MCG/SPRAY BOTTLE NS SCH (08:40)
[2018-09-29] MEDS: Pregabalin 50 MG CAPSULE PO SCH ×3 (08:40→20:27)
[2018-09-29] MEDS: Furosemide 20 MG TABLET PO SCH (08:40)
[2018-09-29] MEDS: Nystatin Cream 15 GM TUBE TP SCH ×2 (08:41→23:43)
[2018-09-29] MEDS: Cholecalciferol (D-3) 1,000 UNIT TABLET PO SCH (08:41)
[2018-09-29] MEDS: Budesonide/Formoterol 160/4.5 1 PUFF INH IH SCH ×2 (09:33→21:59)
[2018-09-29] MEDS: Acetaminophen 325 MG TABLET PO PRN (09:50)
[2018-09-29] MEDS: Ondansetron ODT 4 MG TAB.RAPDIS SL PRN ×4 (09:51→23:38)
[2018-09-29 10:47] LABS: Basophils % 0.2 %; Eosinophils # 0.1 K/mcL (0.0-0.6); Eosinophils % 1.6 %; Hematocrit 36.7 % (35.3-44.9); Hemoglobin 12.5 g/dL (11.5-15.4); Immature Granulocytes % 0.4 % (0-4); Lymphocytes % 19.6 %; Mean Corpuscular HGB Conc 34.1 g/dL (31.6-35.5); Mean Corpuscular Hemoglobin 28.9 pg (28.0-33.3); Mean Corpuscular Volume 84.8 fL (83.0-100.0); Mean Platelet Volume 10.8 fL (9.4-12.4); Monocytes # 0.5 K/mcL (0.0-1.3); Monocytes % 10.2 %; Neutrophils # 3.4 K/mcL (1.6-8.9); Platelet Count 108 K/mcL (140-400); Red Blood Count 4.33 M/mcL (3.82-4.97); Red Cell Distribution Width 13.2 % (11.5-14.5)
[2018-09-29 11:07] LABS: BUN/Creatinine Ratio 22 (6-26); Blood Urea Nitrogen 22 mg/dL (8-23); Calcium 8.3 mg/dL (8.6-10.3); Carbon Dioxide 22 mEq/L (23-29); Chloride 105 mEq/L (98-107); Glucose 231 mg/dL (70-105); Osmolality,Calculated 291 (280-300); Potassium 4.5 mEq/L (3.5-5.1); Sodium 135 mEq/L (136-145); eGFR For Non-African Americans 57 (> 60)
--- NOTE | 2018-09-29 11:39 | Internal Med Progress Note ---
Date of Encounter: 09/29/18 Time of Encounter: 11:30 - Assessment and plan (1) Azotemia Current Visit: Yes Status: Acute Assessment and plan: September 27. BUN and creatinine have risen to 35 and 1.58 respectively. Continue IV fluids and monitor labs. September 28. Creatinine has risen to 1.83 with estimated GFR decreasing to 28. Continue IV fluids and recheck labs in a.m. September 29. Azotemia significant improved with BUN and creatinine 22 and 0.99 respectively with estimated GFR 57. Continue present regimen. (2) DM type 2 (diabetes mellitus, type 2) Current Visit: No Status: Chronic Assessment and plan: September 27. Hemoglobin A1c was 10.0% on 05/24/2018. Continue basal insulin and Accu-Cheks with SSI. Qualifiers: Diabetes mellitus intermodal truck driver insulin use: with group home use Diabetes mellitus complication status: without complication Qualified Code(s): E11.9 - Type 2 diabetes mellitus without complications; Z79.4 - intermediate frame tender (current) use of insulin (3) CKD (chronic kidney disease) stage 3, GFR 30-59 ml/min Current Visit: No Status: Chronic Assessment and plan: September 27. BUN and creatinine increased as per above. Continue to monitor renal indices. September 29. Azotemia significantly improved as per above. (4) Hyponatremia Current Visit: Yes Status: Acute Assessment and plan: September 27. Improved to 131. Continue to monitor. September 28. Sodium improved to 135. Continue present regimen. (5) Hypertension Current Visit: Yes Status: Chronic Assessment and plan: September 27. Lisinopril and Lasix were held because of hypotension. Continue to monitor blood pressure. September 28. Blood pressure remains stable off medication. September 29. Blood pressure has continued to rise. Restart lisinopril and continue Coreg. Qualifiers: Hypertension type: essential hypertension Qualified Code(s): I10 - Essential (primary) hypertension (6) Urinary tract infection Current Visit: No Status: Acute Assessment and plan: September 27. Urine culture report pending. Continue empiric Rocephin. Add lactobacillus. September 28. Urine culture showed Escherichia coli. Continue Rocephin with lactobacillus. Anticipate discharge home tomorrow if stable. September 29. She does not feel she is stable to go home yet. Continue Rocephin and lactobacillus. Anticipate discharge tomorrow. Qualifiers: Urinary tract infection type: site unspecified Hematuria presence: with hematuria Qualified Code(s): N39.0 - Urinary tract infection, site not specified; R31.9 - Hematuria, unspecified - Subjective Interval history: September 27. She complains of nausea and pain in her left ankle. She spiked fever yesterday afternoon of 102.0. Blood cultures were drawn with results pending at present. She was started empirically on Rocephin. She denies vo miting, diarrhea, or dyspnea September 28. She has no new complaints. September 29. She reports some right lower quadrant abdominal discomfort that started yesterday. She states she is having nausea and vomiting. - Constitutional Vitals: Temp Pulse Resp BP Pulse Ox 99.6 F 93 20 165/75 93 09/29/18 10:37 09/29/18 10:37 09/29/18 10:37 09/29/18 10:37 09/29/18 10:37 Exam: She is lying in bed and does not appear to be in pain while at rest. Her abdomen is soft and without masses or guarding noted. She complaints of mild tenderness to moderate palpation the right lower abdominal area. I reviewed her medications and lab results. Internal Medicine: Result - Labs CBC & Chem 7: 09/29/18 10:42 09/29/18 10:42 Labs: Short CBC 09/29/18 Range/Units 10:42 WBC 5.0 (4.3-11.1) K/mcL Hgb 12.5 D (11.5-15.4) g/dL Hct 36.7 (35.3-44.9) % Plt Count 108 L (140-400) K/mcL Neutrophils # 3.4 (1.6-8.9) K/mcL BMP 09/29/18 10:42 Sodium 135 L Potassium 4.5 Chloride 105 Carbon Dioxide 22 L BUN 22 Creatinine 0.99 Glucose 231 H Calcium 8.3 L - VTE Reasons for not Prescribing Prophylaxis: Treatment not Indicated - Low risk for VTE Consult Discharge Plan - Plan Referrals: Reji Felder DO [Primary Care Provider] - 1 week
[2018-09-29] MEDS ORDERED: amLODIPine 5 MG TABLET PO ONE (15:51)
[2018-09-29] MEDS ORDERED: HYDRALAZINE IVP ONE (17:15)
[2018-09-29] MEDS ORDERED: SODIUM CHLORIDE 0.9% IVP ONE (17:15)
[2018-09-29] MEDS: Melatonin 3 MG TABLET PO SCH (20:26)
[2018-09-29] MEDS: cefTRIAXone 1,000 MG in Water for inj. (sterile) 20 ML 10 ML IVP SCH (20:27)
[2018-09-29] MEDS: Insulin DETEMIR 100 UNIT/ML X5UNITS SQ SCH (20:53)
--- NOTE | 2018-09-29 22:06 | Electrocardiograph Report ---
[address] [place], [place] [address] Test Date: 2018-09-25 Pat Name: Gloria Rowe Department: [id number] Room: [facility] Gender: F Referral Coordinator: [id number] : 1955 Requested By: Carmen Duron Order Number: [id number] Reading MD: Lisseth Bello Measurements Intervals [place] Rate: 88 P: 17 WI: 159 QRS: 3 QRSD: 97 T: 137 QT: 356 QTc: 401 Interpretive Statements SINUS RHYTHM ANTEROSEPTAL MYOCARDIAL INFARCTION, OF INDETERMINATE AGE MODERATE T-WAVE ABNORMALITY, CONSIDER LATERAL ISCHEMIA Electronically Signed On 09-29-2018 22:04:28 EST by Lisseth Bello
[2018-09-30] MEDS: Acetaminophen 325 MG TABLET PO PRN (03:29)
[2018-09-30 06:19] LABS: Basophils % 0.2 %; Hematocrit 37.9 % (35.3-44.9); Hemoglobin 12.8 g/dL (11.5-15.4); Immature Granulocytes % 0.4 % (0-4); Mean Corpuscular HGB Conc 33.8 g/dL (31.6-35.5); Mean Corpuscular Hemoglobin 28.4 pg (28.0-33.3); Mean Platelet Volume 11.8 fL (9.4-12.4); Monocytes # 0.5 K/mcL (0.0-1.3); Monocytes % 8.3 %; Neutrophils # 3.9 K/mcL (1.6-8.9); Platelet Count 121 K/mcL (140-400); Red Blood Count 4.51 M/mcL (3.82-4.97); Red Cell Distribution Width 13.1 % (11.5-14.5); Segmented Neutrophils % 72.1 %
[2018-09-30 06:45] LABS: BUN/Creatinine Ratio 22 (6-26); Blood Urea Nitrogen 19 mg/dL (8-23); Calcium 8.3 mg/dL (8.6-10.3); Carbon Dioxide 23 mEq/L (23-29); Chloride 105 mEq/L (98-107); Glucose 279 mg/dL (70-105); Osmolality,Calculated 296 (280-300); Potassium 4.5 mEq/L (3.5-5.1); Sodium 137 mEq/L (136-145); eGFR For Non-African Americans > 60 (> 60)
[2018-09-30 07:30] VITALS: BP 120/67
[2018-09-30] MEDS: Insulin LISPRO 300 UNITS/3 ML VIAL SQ SCH (07:51)
[2018-09-30] MEDS: Lactobacillus 1 EACH CAP.SPRINK PO SCH (08:33)
[2018-09-30] MEDS: Cholecalciferol (D-3) 1,000 UNIT TABLET PO SCH (08:33)
[2018-09-30] MEDS: Pregabalin 50 MG CAPSULE PO SCH (08:33)
[2018-09-30] MEDS: Aspirin Enteric Coated 81 MG Tablet PO SCH (08:33)
[2018-09-30] MEDS: Furosemide 20 MG TABLET PO SCH (08:33)
[2018-09-30] MEDS: ARIPiprazole 5 MG TABLET PO SCH (08:34)
[2018-09-30] MEDS: Nystatin Cream 15 GM TUBE TP SCH (08:35)
[2018-09-30] MEDS: Fluticasone Propionate Nasal 50 MCG/SPRAY BOTTLE NS SCH (08:35)
--- NOTE | 2018-09-30 09:46 | Discharge Summary ---
Orders not resulted at time of discharge: Pending orders 09/26/18 18:33 Culture,Blood [BC] Stat 09/29/18 18:30 ECG 12 lead ECG [ECG] Stat Date of Encounter: 09/30/18 Time of Encounter: 09:38 - Discharge Diagnosis (1) Acute kidney injury Priority: Primary Status: Resolved (2) CKD (chronic kidney disease) stage 3, GFR 30-59 ml/min Priority: Secondary Status: Chronic (3) DM type 2 (diabetes mellitus, type 2) Priority: Secondary Status: Chronic Qualifiers: Diabetes mellitus senior care insulin use: with senior care use Diabetes mellitus complication status: without complication Qualified Code(s): E11.9 - Type 2 diabetes mellitus without complications; Z79.4 - meterman (current) use of insulin (4) Hyponatremia Priority: Secondary Status: Resolved (5) Hypertension Priority: Secondary Status: Chronic Qualifiers: Hypertension type: essential hypertension Qualified Code(s): I10 - Essential (primary) hypertension (6) Urinary tract infection Priority: Secondary Status: Acute Qualifiers: Urinary tract infection type: site unspecified Hematuria presence: with hematuria Qualified Code(s): N39.0 - Urinary tract infection, site not specified; R31.9 - Hematuria, unspecified Hospital course: Ms. Rowe is a 63 year old female who came to emergency room stating she noted she did not feel well onset September 24. The following morning she awakened with shaking to the point she occasionally dropped things she was attempting to hold. Her legs felt heavy and she had arthralgias involving her legs especially her knees. She had a headache. She came to emergency room and was evaluated and admitted to [facility] for ongoing care needs. Initial orders were written by the emergency room physician. I saw her on September 26 and performed a history and physical. She was started empirically on Rocephin. Urine culture returned showing Escherichia coli. She remained afebrile the last 48 hours of hospitalization. No additional antibiotic will be given at discharge. She was given IV fluids and hyponatremia resolved with sodium level 137 on day of discharge. Azotemia resolved with BUN and creatinine decreasing to 19 and 0.88 respectively by day of discharge with estimated GFR greater than 60. On September 30 she felt improved and stable for discharge home. She will follow with her PCP Dr. Felder within 1 week. - Time Spent with Patient Total time spent providing and/or coordinating discharge services: - Discharge Medications Home Medications: Alendronate Sodium 70 mg PO QWEEK 10/17/15 [History] Aspirin Enteric Coated [Aspirin EC] 81 mg PO DAILY 07/25/17 [History] Carvedilol 12.5 mg PO BID 07/25/17 [History] Citalopram Hydrobromide [Citalopram HBr] 20 mg PO DAILY 07/25/17 [History] Nitroglycerin [Nitrostat] 0.4 mg SL AD 07/25/17 [History] Insulin ASPART [NovoLOG] 15 - 30 unit SQ TIDWM 11/16/17 [History] Atorvastatin [Lipitor] 40 mg PO DAILY 04/19/18 [History] Clopidogrel [Plavix] 75 mg PO DAILY 04/19/18 [History] Pramipexole [Mirapex] 0.25 mg PO HS 04/19/18 [History] Zolpidem Tartrate 5 mg PO HS 04/19/18 [History] Budesonide/Formoterol 160/4.5 [Symbicort 160/4.5] 2 puff IH BID 05/03/18 [History] Lisinopril [Zestril] 10 mg PO DAILY 05/03/18 [History] Fluticasone Propionate Nasal [Flonase] 1 spray IH DAILY 05/23/18 [History] ARIPiprazole [Abilify] 15 mg PO DAILY 06/05/18 [History] Ergocalciferol (VITAMIN D2) [Drisdol (50,000 Unit)] 50,000 unit PO DAILY 06/05/18 [History] Furosemide [Lasix] 20 mg PO DAILY 06/05/18 [History] Omeprazole [PriLOSEC] 40 mg PO DAILY 06/05/18 [History] Potassium Chloride [K-Tab ER] 20 meq PO DAILY 06/05/18 [History] Pramipexole Di-HCl [Pramipexole Dihydrochloride] 0.25 mg PO HS 06/05/18 [History] DULoxetine [Cymbalta] 20 mg PO DAILY 09/26/18 [History] Fluticasone/Salmeterol [Advair 250-50 Diskus] 1 each IH 09/26/18 [History] Insulin Degludec [Tresiba Flextouch U-200] 80 - 100 unit SQ DAILY 09/26/18 [History] Lansoprazole [Prevacid] 30 mg PO DAILY 09/26/18 [History] Melatonin 10 mg PO HS 09/26/18 [History] Pregabalin [Lyrica] 100 mg PO TID 09/26/18 [History] Allergies/Adverse Reactions: Allergy/AdvReac Type Severity Reaction Status Date / Time promethazine [From Phenergan] Allergy Confusion Verified 09/09/18 15:10 venlafaxine [From Effexor] Allergy Nausea Verified 09/09/18 15:10 Date of admission: 09/26/18 02:48 Primary care physician: Reji Felder DO - Constitutional Vitals: Temp Pulse Resp BP Pulse Ox 97.8 F 75 20 120/67 95 09/30/18 07:29 09/30/18 07:29 09/30/18 07:29 09/30/18 07:29 09/30/18 07:29 - Patient Status Disposition: Home, Self-Care Condition: Fair - Discharge Instructions Follow Up With: Reji Felder DO [Primary Care Provider] - 1 week - Diet and Activity Activity: resume usual activities as tolerated Diet: diabetic diet - VTE Reasons for not Prescribing Prophylaxis: Treatment not Indicated - Low risk for VTE
[2018-09-30] MEDS: Budesonide/Formoterol 160/4.5 1 PUFF INH IH SCH (10:14)
--- NOTE | 2018-10-02 17:48 | Electrocardiograph Report ---
[address] [place] [address] Test Date: 2018-09-29 Pat Name: Gloria Rowe Department: [id number] Room: [facility] Gender: F [employer]: : [id number] Requested By: Alfonzo Peralta Order Number: [id number] Reading MD: Marsha Alford Measurements Intervals [place] Rate: 81 P: 54 IA: 150 QRS: 7 QRSD: 93 T: 92 QT: 402 QTc: 439 Interpretive Statements SINUS RHYTHM ANTEROSEPTAL MYOCARDIAL INFARCTION [40+ ms Q WAVE IN V1-V4], OF INDETERMINATE AGE Electronically Signed On 10-02-2018 17:46:55 EST by Marsha Alford
== END 2018-09-30 11:30 | disposition home or self-care (01) ==
LOC: EMEROOPIK 23:27 → INPPIK 23:27
PROVIDERS: ADMIT Internal Medicine; ATTEND Internal Medicine

== ENCOUNTER 2021-04-17 17:57 | Observation (INO) ==
[2021-04-17] MEDS ORDERED: 0.9 % Sodium Chloride 1,000 ML IVC ONE (18:19)
[2021-04-17 18:39] LABS: Basophils % 0.4 %; Eosinophils # 0.1 K/mcL (0.0-0.6); Eosinophils % 0.9 %; Hematocrit 31.4 % (35.3-44.9); Hemoglobin 10.5 g/dL (11.5-15.4); Immature Granulocytes % 0.5 % (0-4); Lymphocytes # 1.2 K/mcL (0.6-4.6); Lymphocytes % 11.2 %; Mean Corpuscular HGB Conc 33.4 g/dL (31.6-35.5); Mean Corpuscular Hemoglobin 29.1 pg (28.0-33.3); Mean Platelet Volume 11.2 fL (9.4-12.4); Monocytes # 0.6 K/mcL (0.0-1.3); Monocytes % 5.3 %; Neutrophils # 8.7 K/mcL (1.6-8.9); Platelet Count 168 K/mcL (140-400); Red Blood Count 3.61 M/mcL (3.82-4.97); Segmented Neutrophils % 81.7 %; White Blood Count 10.6 K/mcL (4.3-11.1)
[2021-04-17 18:47] LABS: INR 1.2; Prothrombin Time 13.3 Seconds (9.4-12.1)
[2021-04-17 18:58] LABS: Alanine Aminotransferase 9 Units/L (7-52); Albumin 3.6 g/dL (3.5-5.7); Alkaline Phosphatase 157 Units/L (34-104); Aspartate Amino Transferase 20 Units/L (13-39); BUN/Creatinine Ratio 20 (6-26); Bilirubin,Direct 0.1 mg/dL (0.0-0.2); Bilirubin,Indirect 0.3 mg/dL (0.0-1.0); Bilirubin,Total 0.4 mg/dL (0.3-1.0); Blood Urea Nitrogen 35 mg/dL (8-23); Calcium 8.7 mg/dL (8.6-10.3); Carbon Dioxide 19 mEq/L (23-29); Chloride 101 mEq/L (98-107); Globulin 3.5 g/dL (2.4-3.5); Glucose 344 mg/dL (70-105); Osmolality,Calculated 286 (280-300); Potassium 6.5 mEq/L (3.5-5.1); Sodium 127 mEq/L (136-145); Total Protein 7.1 g/dL (6.4-8.9); Troponin I < 0.03 ng/mL (< 0.04); eGFR For African Americans 35 (> 60); eGFR For Non-African Americans 29 (> 60)
[2021-04-17 19:11] LABS: Bilirubin,Urine Negative (Negative); Blood,Urine Negative (Negative); Clarity,Urine Slightly Cloudy (Clear); Color,Urine Yellow (Yellow); Glucose,Urine (UA) 100 mg/dL (Normal); Ketones,Urine Negative (Negative); Leukocyte Esterase,Urine Negative (Negative); Nitrite,Urine Negative (Negative); PH,Urine 5.5 pH Units (5.0-8.0); Protein,Urine 100 mg/dL (Neg-Trace); Specific Gravity,Urine 1.025 (1.010-1.025); Urobilinogen,Urine Normal (Normal)
[2021-04-17 19:21] LABS: RBC,Urine 0-3 per hpf (0-3); WBC,Urine 0-3 per hpf (0-3)
[2021-04-17 19:22] LABS: Bacteria,Urine Few per hpf (None-Few); Squamous Epithelial Cell,Urine Few per hpf (None-Few)
[2021-04-17] MEDS ORDERED: Albuterol 2.5 MG/3 ML NEBULIZER IH ONE (19:36)
[2021-04-17] MEDS ORDERED: Insulin Human Regular 20 UNIT in 0.9 % Sodium Chloride 10 ML IV ONE (19:37)
[2021-04-17] MEDS ORDERED: Ondansetron 4 MG/2 ML VIAL IVP ONE (20:23)
[2021-04-17 21:41] LABS: Calcium 9.1 mg/dL (8.6-10.3); Potassium 5.7 mEq/L (3.5-5.1)
[2021-04-17] MEDS ORDERED: *HR* Dextrose 50 % in Water (Vial) 50 ML VIAL IVP PRN (21:58)
[2021-04-17] MEDS ORDERED: D5% in Water 1,000 ML IVC PRN (21:58)
[2021-04-17] MEDS ORDERED: Dextrose Gel 15 GM/37.5 ML TUBE PO PRN ×2 (21:58)
[2021-04-17] MEDS: carvediloL 6.25 MG TABLET PO SCH (22:59)
[2021-04-17] MEDS: Acetaminophen 325 MG TABLET PO PRN (22:59)
[2021-04-17] MEDS: Carbidopa/Levodopa 25/100 TABLET PO SCH (23:00)
[2021-04-17] MEDS ORDERED: 0.9 % Sodium Chloride 1,000 ML IVC SCH (23:45)
[2021-04-18] MEDS: Insulin LISPRO 300 UNITS/3 ML VIAL SUBQ SCH ×5 (00:19→20:38)
[2021-04-18 05:23] LABS: Hematocrit 28.3 % (35.3-44.9); Hemoglobin 9.4 g/dL (11.5-15.4); Mean Corpuscular HGB Conc 33.2 g/dL (31.6-35.5); Mean Corpuscular Hemoglobin 28.7 pg (28.0-33.3); Mean Corpuscular Volume 86.5 fL (83.0-100.0); Mean Platelet Volume 10.9 fL (9.4-12.4); Platelet Count 138 K/mcL (140-400); Red Blood Count 3.27 M/mcL (3.82-4.97); Red Cell Distribution Width 14.1 % (11.5-14.5); White Blood Count 6.6 K/mcL (4.3-11.1)
[2021-04-18 05:34] LABS: Calcium 8.8 mg/dL (8.6-10.3); Potassium 5.2 mEq/L (3.5-5.1)
[2021-04-18] MEDS: Aspirin Enteric Coated 81 MG Tablet PO SCH (08:36)
[2021-04-18] MEDS: carvediloL 6.25 MG TABLET PO SCH ×2 (08:36→16:41)
[2021-04-18] MEDS: Carbidopa/Levodopa 25/100 TABLET PO SCH ×3 (08:36→20:34)
[2021-04-18 08:38] LABS: Basophils % 0.3 %; Eosinophils # 0.2 K/mcL (0.0-0.6); Eosinophils % 2.2 %; Hematocrit 29.4 % (35.3-44.9); Hemoglobin 9.9 g/dL (11.5-15.4); Immature Granulocytes % 0.3 % (0-4); Lymphocytes % 29.2 %; Mean Corpuscular HGB Conc 33.7 g/dL (31.6-35.5); Mean Corpuscular Hemoglobin 29.2 pg (28.0-33.3); Mean Corpuscular Volume 86.7 fL (83.0-100.0); Mean Platelet Volume 11.1 fL (9.4-12.4); Monocytes # 0.5 K/mcL (0.0-1.3); Monocytes % 6.8 %; Neutrophils # 4.1 K/mcL (1.6-8.9); Platelet Count 145 K/mcL (140-400); Red Blood Count 3.39 M/mcL (3.82-4.97); Red Cell Distribution Width 14.3 % (11.5-14.5); Segmented Neutrophils % 61.2 %; White Blood Count 6.7 K/mcL (4.3-11.1)
[2021-04-18 08:53] LABS: Calcium 8.8 mg/dL (8.6-10.3); Potassium 4.6 mEq/L (3.5-5.1)
[2021-04-18] MEDS: Budesonide/Formoterol 160/4.5 1 PUFF INH IH SCH ×2 (09:04→21:09)
[2021-04-18] MEDS: Acetaminophen 325 MG TABLET PO PRN (20:34)
[2021-04-18] MEDS: Ranolazine 500 MG TAB.ER.12H PO SCH (20:34)
[2021-04-18] MEDS: FLUoxetine 20 MG CAPSULE PO SCH (20:36)
[2021-04-18] MEDS ORDERED: Insulin DETEMIR 100 UNIT/ML X5UNITS SUBQ SCH (21:00)
[2021-04-19] MEDS: Acetaminophen 325 MG TABLET PO PRN ×3 (02:25→20:29)
[2021-04-19 05:42] LABS: Basophils % 0.2 %; Eosinophils # 0.2 K/mcL (0.0-0.6); Eosinophils % 3.5 %; Hematocrit 28.9 % (35.3-44.9); Hemoglobin 9.4 g/dL (11.5-15.4); Immature Granulocytes % 0.2 % (0-4); Lymphocytes # 1.4 K/mcL (0.6-4.6); Lymphocytes % 25.5 %; Mean Corpuscular HGB Conc 32.5 g/dL (31.6-35.5); Mean Corpuscular Hemoglobin 28.7 pg (28.0-33.3); Mean Corpuscular Volume 88.1 fL (83.0-100.0); Monocytes # 0.4 K/mcL (0.0-1.3); Monocytes % 7.1 %; Neutrophils # 3.5 K/mcL (1.6-8.9); Platelet Count 122 K/mcL (140-400); Red Blood Count 3.28 M/mcL (3.82-4.97); Red Cell Distribution Width 14.3 % (11.5-14.5); Segmented Neutrophils % 63.5 %; White Blood Count 5.5 K/mcL (4.3-11.1)
[2021-04-19 07:10] LABS: Calcium 8.7 mg/dL (8.6-10.3); Potassium 4.7 mEq/L (3.5-5.1)
[2021-04-19] MEDS: ARIPiprazole 5 MG TABLET PO SCH (08:39)
[2021-04-19] MEDS: allopurinoL 100 MG TABLET PO SCH (08:39)
[2021-04-19] MEDS: carvediloL 6.25 MG TABLET PO SCH ×2 (08:39→16:36)
[2021-04-19] MEDS: Ranolazine 500 MG TAB.ER.12H PO SCH ×2 (08:39→20:29)
[2021-04-19] MEDS: Carbidopa/Levodopa 25/100 TABLET PO SCH ×3 (08:40→20:29)
[2021-04-19] MEDS: Furosemide 20 MG TABLET PO SCH (08:40)
[2021-04-19] MEDS: Insulin LISPRO 300 UNITS/3 ML VIAL SUBQ SCH ×4 (08:40→20:30)
[2021-04-19] MEDS: Aspirin Enteric Coated 81 MG Tablet PO SCH (08:40)
[2021-04-19] MEDS: Budesonide/Formoterol 160/4.5 1 PUFF INH IH SCH ×2 (09:08→22:35)
[2021-04-19] MEDS: FLUoxetine 20 MG CAPSULE PO SCH (20:29)
[2021-04-19] MEDS ORDERED: Insulin DETEMIR 100 UNIT/ML X5UNITS SUBQ SCH (21:00)
[2021-04-20] MEDS ORDERED: *HR* Enoxaparin 40 MG/0.4 ML SYRINGE SQ SCH (06:00)
[2021-04-20 07:01] LABS: Basophils % 0.3 %; Eosinophils # 0.2 K/mcL (0.0-0.6); Eosinophils % 2.5 %; Hematocrit 30.8 % (35.3-44.9); Hemoglobin 10.2 g/dL (11.5-15.4); Immature Granulocytes % 0.4 % (0-4); Lymphocytes # 1.2 K/mcL (0.6-4.6); Lymphocytes % 16.2 %; Mean Corpuscular HGB Conc 33.1 g/dL (31.6-35.5); Mean Corpuscular Hemoglobin 28.9 pg (28.0-33.3); Mean Corpuscular Volume 87.3 fL (83.0-100.0); Monocytes # 0.5 K/mcL (0.0-1.3); Monocytes % 6.5 %; Neutrophils # 5.6 K/mcL (1.6-8.9); Platelet Count 162 K/mcL (140-400); Red Blood Count 3.53 M/mcL (3.82-4.97); Red Cell Distribution Width 14.1 % (11.5-14.5); Segmented Neutrophils % 74.1 %; White Blood Count 7.6 K/mcL (4.3-11.1)
[2021-04-20 07:13] VITALS: BP 186/77
[2021-04-20 08:19] LABS: BUN/Creatinine Ratio 19 (6-26); Blood Urea Nitrogen 19 mg/dL (8-23); Carbon Dioxide 28 mEq/L (23-29); Chloride 104 mEq/L (98-107); Glucose 125 mg/dL (70-105); Osmolality,Calculated 290 (280-300); Potassium 4.5 mEq/L (3.5-5.1); Sodium 138 mEq/L (136-145); eGFR For African Americans > 60 (> 60); eGFR For Non-African Americans 56 (> 60)
[2021-04-20] MEDS: carvediloL 6.25 MG TABLET PO SCH ×2 (08:53→16:22)
[2021-04-20] MEDS: Carbidopa/Levodopa 25/100 TABLET PO SCH ×2 (08:54→16:22)
[2021-04-20] MEDS: allopurinoL 100 MG TABLET PO SCH (08:54)
[2021-04-20] MEDS: ARIPiprazole 5 MG TABLET PO SCH (08:54)
[2021-04-20] MEDS: Ranolazine 500 MG TAB.ER.12H PO SCH (08:54)
[2021-04-20] MEDS: Furosemide 20 MG TABLET PO SCH (08:54)
[2021-04-20] MEDS: Aspirin Enteric Coated 81 MG Tablet PO SCH (08:54)
[2021-04-20] MEDS: Insulin LISPRO 300 UNITS/3 ML VIAL SUBQ SCH ×2 (08:55→13:43)
[2021-04-20] MEDS ORDERED: cloNIDine HCL 0.1 MG TABLET PO SCH (09:00)
[2021-04-20 09:03] LABS: Estimated Average Glucose 220 mg/dl; Hemoglobin A1C 9.3 %
[2021-04-20] MEDS: Budesonide/Formoterol 160/4.5 1 PUFF INH IH SCH (10:00)
[2021-04-20] MEDS: Gabapentin 300 MG CAPSULE PO SCH ×2 (10:30→16:22)
[2021-04-20] MEDS ORDERED: Insulin LISPRO 300 UNITS/3 ML VIAL SUBQ SCH ×2 (12:00)
== END 2021-04-20 16:45 | disposition home health service (06) ==
LOC: EMEROOPIK 17:57 → INPPIK 17:57
PROVIDERS: ADMIT Internal Medicine; ATTEND Family Medicine

== ENCOUNTER 2021-05-05 05:50 | Inpatient (IN) ==
[2021-05-05] MEDS ORDERED: 0.9 % Sodium Chloride 500 ML IVC ONE (06:06)
[2021-05-05] MEDS ORDERED: 0.9 % Sodium Chloride 1,000 ML IVC SCH ×2 (06:15→08:45)
[2021-05-05 07:07] LABS: Basophils % 0.3 %; Eosinophils % 0.6 %; Hematocrit 36.5 % (35.3-44.9); Hemoglobin 12.6 g/dL (11.5-15.4); Immature Granulocytes % 0.3 % (0-4); Lymphocytes # 0.7 K/mcL (0.6-4.6); Lymphocytes % 10.9 %; Mean Corpuscular HGB Conc 34.5 g/dL (31.6-35.5); Mean Corpuscular Hemoglobin 29.7 pg (28.0-33.3); Mean Corpuscular Volume 86.1 fL (83.0-100.0); Monocytes # 0.5 K/mcL (0.0-1.3); Monocytes % 7.8 %; Neutrophils # 5.1 K/mcL (1.6-8.9); Platelet Count 188 K/mcL (140-400); Red Blood Count 4.24 M/mcL (3.82-4.97); Red Cell Distribution Width 13.6 % (11.5-14.5); Segmented Neutrophils % 80.1 %; White Blood Count 6.4 K/mcL (4.3-11.1)
[2021-05-05 07:15] LABS: Bilirubin,Urine Negative (Negative); Blood,Urine Small (Negative); Clarity,Urine Cloudy (Clear); Color,Urine Yellow (Yellow); Glucose,Urine (UA) Normal (Normal); Ketones,Urine Negative (Negative); Leukocyte Esterase,Urine Trace (Negative); Nitrite,Urine Negative (Negative); Protein,Urine >=300 mg/dL (Neg-Trace); Specific Gravity,Urine 1.025 (1.010-1.025); Urobilinogen,Urine Normal (Normal)
[2021-05-05] MEDS ORDERED: cefTRIAXone 2,000 MG in 0.9 % Sodium Chloride Mini Bag 100 ML IVPB ONE (07:23)
[2021-05-05 07:26] LABS: Bacteria,Urine Many per hpf (None-Few)
[2021-05-05 07:27] LABS: Amorphous Sediment,Urine Few per hpf (None-Few); WBC,Urine 15-30 per hpf (0-3)
[2021-05-05 07:34] LABS: Albumin 3.7 g/dL (3.5-5.7); Albumin/Globulin Ratio 0.9 (1.1-2.2); Bilirubin,Direct 0.2 mg/dL (0.0-0.2); Bilirubin,Indirect 0.4 mg/dL (0.0-1.0); Bilirubin,Total 0.6 mg/dL (0.3-1.0); Calcium 9.3 mg/dL (8.6-10.3); Potassium 5.2 mEq/L (3.5-5.1); Total Protein 7.7 g/dL (6.4-8.9)
[2021-05-05] MEDS ORDERED: Naloxone 0.4 MG/ML INJ IVP PRN (08:34)
[2021-05-05] MEDS ORDERED: Ondansetron ODT 4 MG TAB.RAPDIS SL PRN (08:34)
[2021-05-05] MEDS ORDERED: *HR* Dextrose 50 % in Water (Vial) 50 ML VIAL IVP PRN (08:37)
[2021-05-05] MEDS ORDERED: D5% in Water 1,000 ML IVC PRN (08:37)
[2021-05-05] MEDS ORDERED: Dextrose Gel 15 GM/37.5 ML TUBE PO PRN ×2 (08:37)
[2021-05-05] MEDS: Acetaminophen 325 MG TABLET PO PRN ×2 (09:55→16:06)
[2021-05-05] MEDS ORDERED: FLUoxetine 20 MG CAPSULE PO SCH (11:00)
[2021-05-05] MEDS: Budesonide/Formoterol 160/4.5 1 PUFF INH IH SCH ×2 (11:18→20:30)
[2021-05-05] MEDS: atenoloL 50 MG TABLET PO SCH (11:54)
[2021-05-05] MEDS: cloNIDine HCL 0.1 MG TABLET PO SCH ×2 (11:54→22:47)
[2021-05-05] MEDS: Aspirin Enteric Coated 81 MG Tablet PO SCH (11:54)
[2021-05-05] MEDS: Insulin LISPRO 300 UNITS/3 ML VIAL SUBQ SCH ×3 (11:55→22:49)
[2021-05-05 12:17] LABS: Calcium 8.4 mg/dL (8.6-10.3); Potassium 4.8 mEq/L (3.5-5.1)
[2021-05-05] MEDS: Gabapentin 300 MG CAPSULE PO SCH ×2 (16:03→22:47)
[2021-05-05] MEDS: Nitrofurantoin (BID) 100 MG CAPSULE PO SCH (16:03)
[2021-05-05] MEDS: Carbidopa/Levodopa 25/100 TABLET PO SCH ×2 (16:03→22:47)
[2021-05-05] MEDS: carvediloL 6.25 MG TABLET PO SCH (16:03)
[2021-05-05] MEDS: Ranolazine 500 MG TAB.ER.12H PO SCH (22:47)
[2021-05-06] MEDS: Acetaminophen 325 MG TABLET PO PRN (04:28)
[2021-05-06 06:37] LABS: Hematocrit 30.2 % (35.3-44.9); Hemoglobin 10.1 g/dL (11.5-15.4); Mean Corpuscular HGB Conc 33.4 g/dL (31.6-35.5); Mean Corpuscular Hemoglobin 29.1 pg (28.0-33.3); Mean Platelet Volume 11.3 fL (9.4-12.4); Platelet Count 132 K/mcL (140-400); Red Blood Count 3.47 M/mcL (3.82-4.97); Red Cell Distribution Width 13.7 % (11.5-14.5); White Blood Count 4.1 K/mcL (4.3-11.1)
[2021-05-06 07:37] LABS: Calcium 8.3 mg/dL (8.6-10.3); Magnesium 1.5 mg/dL (1.6-2.6); Potassium 4.8 mEq/L (3.5-5.1)
[2021-05-06] MEDS: carvediloL 6.25 MG TABLET PO SCH ×2 (08:01→17:02)
[2021-05-06] MEDS: ARIPiprazole 10 MG TABLET PO SCH (08:01)
[2021-05-06] MEDS: allopurinoL 100 MG TABLET PO SCH (08:01)
[2021-05-06] MEDS: Nitrofurantoin (BID) 100 MG CAPSULE PO SCH (08:02)
[2021-05-06] MEDS: cloNIDine HCL 0.1 MG TABLET PO SCH ×2 (08:02→20:37)
[2021-05-06] MEDS: Carbidopa/Levodopa 25/100 TABLET PO SCH ×3 (08:02→20:37)
[2021-05-06] MEDS: Ranolazine 500 MG TAB.ER.12H PO SCH ×2 (08:02→20:37)
[2021-05-06] MEDS: Aspirin Enteric Coated 81 MG Tablet PO SCH (08:02)
[2021-05-06] MEDS: FLUoxetine 20 MG CAPSULE PO SCH (08:02)
[2021-05-06] MEDS: Cholecalciferol (D-3) 1,000 UNIT (25MCG) TABLET PO SCH (08:03)
[2021-05-06] MEDS: lisinopriL 10 MG TABLET PO SCH (08:03)
[2021-05-06] MEDS: Furosemide 20 MG TABLET PO SCH (08:03)
[2021-05-06] MEDS: Insulin LISPRO 300 UNITS/3 ML VIAL SUBQ SCH ×4 (08:03→20:39)
[2021-05-06] MEDS: Gabapentin 300 MG CAPSULE PO SCH ×3 (08:03→20:37)
[2021-05-06] MEDS: atenoloL 50 MG TABLET PO SCH (08:03)
[2021-05-06] MEDS: Budesonide/Formoterol 160/4.5 1 PUFF INH IH SCH ×2 (09:34→20:57)
[2021-05-06] MEDS: Insulin DETEMIR 100 UNIT/ML X5UNITS SUBQ SCH ×2 (11:11→20:38)
[2021-05-06] MEDS: Amoxicillin/Clavulanate 500 MG TABLET PO SCH (17:02)
[2021-05-07] MEDS: Piperacillin/Tazobactam 3.375 GM in 0.9 % Sodium Chloride Mini Bag 100 ML IVPB SCH ×2 (09:22→17:26)
[2021-05-07] MEDS: ARIPiprazole 10 MG TABLET PO SCH (09:28)
[2021-05-07] MEDS: Aspirin Enteric Coated 81 MG Tablet PO SCH (09:28)
[2021-05-07] MEDS: lisinopriL 10 MG TABLET PO SCH (09:28)
[2021-05-07] MEDS: FLUoxetine 20 MG CAPSULE PO SCH (09:28)
[2021-05-07] MEDS: Ranolazine 500 MG TAB.ER.12H PO SCH ×2 (09:28→20:54)
[2021-05-07] MEDS: Insulin DETEMIR 100 UNIT/ML X5UNITS SUBQ SCH ×2 (09:28→20:54)
[2021-05-07] MEDS: Carbidopa/Levodopa 25/100 TABLET PO SCH ×3 (09:29→20:54)
[2021-05-07] MEDS: Cholecalciferol (D-3) 1,000 UNIT (25MCG) TABLET PO SCH (09:29)
[2021-05-07] MEDS: atenoloL 50 MG TABLET PO SCH (09:29)
[2021-05-07] MEDS: Furosemide 20 MG TABLET PO SCH (09:29)
[2021-05-07] MEDS: allopurinoL 100 MG TABLET PO SCH (09:29)
[2021-05-07] MEDS: Gabapentin 300 MG CAPSULE PO SCH ×3 (09:29→20:53)
[2021-05-07] MEDS: cloNIDine HCL 0.1 MG TABLET PO SCH ×3 (09:29→23:18)
[2021-05-07] MEDS: carvediloL 6.25 MG TABLET PO SCH ×2 (09:29→17:26)
[2021-05-07] MEDS: Insulin LISPRO 300 UNITS/3 ML VIAL SUBQ SCH ×4 (09:30→20:55)
[2021-05-07] MEDS: Amoxicillin/Clavulanate 500 MG TABLET PO SCH (09:46)
[2021-05-07] MEDS: Budesonide/Formoterol 160/4.5 1 PUFF INH IH SCH ×2 (09:54→20:48)
[2021-05-07] MEDS: Acetaminophen 325 MG TABLET PO PRN (20:54)
[2021-05-08] MEDS: Piperacillin/Tazobactam 3.375 GM in 0.9 % Sodium Chloride Mini Bag 100 ML IVPB SCH ×3 (00:52→16:55)
[2021-05-08 06:37] LABS: Hematocrit 30.9 % (35.3-44.9); Hemoglobin 10.2 g/dL (11.5-15.4); Mean Corpuscular Hemoglobin 28.3 pg (28.0-33.3); Mean Corpuscular Volume 85.6 fL (83.0-100.0); Mean Platelet Volume 11.2 fL (9.4-12.4); Platelet Count 152 K/mcL (140-400); Red Blood Count 3.61 M/mcL (3.82-4.97); Red Cell Distribution Width 13.3 % (11.5-14.5); White Blood Count 3.7 K/mcL (4.3-11.1)
[2021-05-08 06:57] LABS: Calcium 8.9 mg/dL (8.6-10.3); Potassium 4.7 mEq/L (3.5-5.1)
[2021-05-08] MEDS: Insulin LISPRO 300 UNITS/3 ML VIAL SUBQ SCH ×4 (08:04→21:51)
[2021-05-08] MEDS: Carbidopa/Levodopa 25/100 TABLET PO SCH ×3 (09:48→21:48)
[2021-05-08] MEDS: carvediloL 6.25 MG TABLET PO SCH ×2 (09:48→16:54)
[2021-05-08] MEDS: Furosemide 20 MG TABLET PO SCH (09:49)
[2021-05-08] MEDS: ARIPiprazole 10 MG TABLET PO SCH (09:49)
[2021-05-08] MEDS: lisinopriL 10 MG TABLET PO SCH (09:50)
[2021-05-08] MEDS: Aspirin Enteric Coated 81 MG Tablet PO SCH (09:50)
[2021-05-08] MEDS: Ranolazine 500 MG TAB.ER.12H PO SCH ×2 (09:50→21:47)
[2021-05-08] MEDS: Gabapentin 300 MG CAPSULE PO SCH ×3 (09:50→21:48)
[2021-05-08] MEDS: FLUoxetine 20 MG CAPSULE PO SCH (09:50)
[2021-05-08] MEDS: Cholecalciferol (D-3) 1,000 UNIT (25MCG) TABLET PO SCH (09:50)
[2021-05-08] MEDS: Budesonide/Formoterol 160/4.5 1 PUFF INH IH SCH ×2 (09:50→21:42)
[2021-05-08] MEDS: atenoloL 50 MG TABLET PO SCH (09:50)
[2021-05-08] MEDS: allopurinoL 100 MG TABLET PO SCH (09:51)
[2021-05-08] MEDS: Insulin DETEMIR 100 UNIT/ML X5UNITS SUBQ SCH ×2 (09:52→21:52)
[2021-05-08] MEDS: cloNIDine HCL 0.1 MG TABLET PO SCH ×2 (09:53→21:48)
[2021-05-08] MEDS: Benzonatate 100 MG CAPSULE PO PRN ×2 (11:47→21:51)
[2021-05-09] MEDS: Piperacillin/Tazobactam 3.375 GM in 0.9 % Sodium Chloride Mini Bag 100 ML IVPB SCH ×3 (01:41→17:37)
[2021-05-09] MEDS: Insulin DETEMIR 100 UNIT/ML X5UNITS SUBQ SCH ×2 (09:14→20:54)
[2021-05-09] MEDS: Cholecalciferol (D-3) 1,000 UNIT (25MCG) TABLET PO SCH (09:14)
[2021-05-09] MEDS: carvediloL 6.25 MG TABLET PO SCH ×2 (09:14→17:37)
[2021-05-09] MEDS: Ranolazine 500 MG TAB.ER.12H PO SCH ×2 (09:14→20:54)
[2021-05-09] MEDS: Carbidopa/Levodopa 25/100 TABLET PO SCH ×3 (09:15→20:54)
[2021-05-09] MEDS: Gabapentin 300 MG CAPSULE PO SCH ×3 (09:15→20:54)
[2021-05-09] MEDS: FLUoxetine 20 MG CAPSULE PO SCH (09:15)
[2021-05-09] MEDS: allopurinoL 100 MG TABLET PO SCH (09:15)
[2021-05-09] MEDS: lisinopriL 10 MG TABLET PO SCH (09:15)
[2021-05-09] MEDS: Aspirin Enteric Coated 81 MG Tablet PO SCH (09:15)
[2021-05-09] MEDS: atenoloL 50 MG TABLET PO SCH (09:15)
[2021-05-09] MEDS: ARIPiprazole 10 MG TABLET PO SCH (09:15)
[2021-05-09] MEDS: Furosemide 20 MG TABLET PO SCH (09:15)
[2021-05-09] MEDS: cloNIDine HCL 0.1 MG TABLET PO SCH ×2 (09:15→20:54)
[2021-05-09] MEDS: Insulin LISPRO 300 UNITS/3 ML VIAL SUBQ SCH ×4 (09:17→20:54)
[2021-05-09] MEDS: Budesonide/Formoterol 160/4.5 1 PUFF INH IH SCH ×2 (10:13→21:01)
[2021-05-09] MEDS: Benzonatate 100 MG CAPSULE PO PRN (12:37)
[2021-05-10] MEDS: Piperacillin/Tazobactam 3.375 GM in 0.9 % Sodium Chloride Mini Bag 100 ML IVPB SCH ×3 (01:04→17:25)
[2021-05-10 07:25] LABS: Basophils % 0.6 %; Eosinophils # 0.2 K/mcL (0.0-0.6); Eosinophils % 3.8 %; Hematocrit 32.9 % (35.3-44.9); Hemoglobin 10.9 g/dL (11.5-15.4); Immature Granulocytes % 0.6 % (0-4); Lymphocytes # 1.6 K/mcL (0.6-4.6); Lymphocytes % 32.5 %; Mean Corpuscular HGB Conc 33.1 g/dL (31.6-35.5); Mean Corpuscular Hemoglobin 28.6 pg (28.0-33.3); Mean Corpuscular Volume 86.4 fL (83.0-100.0); Monocytes # 0.4 K/mcL (0.0-1.3); Monocytes % 7.3 %; Neutrophils # 2.8 K/mcL (1.6-8.9); Platelet Count 153 K/mcL (140-400); Red Blood Count 3.81 M/mcL (3.82-4.97); Red Cell Distribution Width 13.5 % (11.5-14.5); Segmented Neutrophils % 55.2 %
[2021-05-10 07:47] LABS: Magnesium 1.5 mg/dL (1.6-2.6); Potassium 4.4 mEq/L (3.5-5.1)
[2021-05-10] MEDS: cloNIDine HCL 0.1 MG TABLET PO SCH ×2 (08:55→21:39)
[2021-05-10] MEDS: lisinopriL 10 MG TABLET PO SCH (08:56)
[2021-05-10] MEDS: Aspirin Enteric Coated 81 MG Tablet PO SCH (08:56)
[2021-05-10] MEDS: Furosemide 20 MG TABLET PO SCH (08:57)
[2021-05-10] MEDS: Cholecalciferol (D-3) 1,000 UNIT (25MCG) TABLET PO SCH (08:58)
[2021-05-10] MEDS: carvediloL 6.25 MG TABLET PO SCH ×2 (08:58→17:24)
[2021-05-10] MEDS: Ranolazine 500 MG TAB.ER.12H PO SCH ×2 (08:59→21:38)
[2021-05-10] MEDS: Magnesium Oxide 400 MG TABLET PO SCH (08:59)
[2021-05-10] MEDS: Gabapentin 300 MG CAPSULE PO SCH ×3 (09:00→21:39)
[2021-05-10] MEDS: Carbidopa/Levodopa 25/100 TABLET PO SCH ×3 (09:01→21:38)
[2021-05-10] MEDS: ARIPiprazole 10 MG TABLET PO SCH (09:01)
[2021-05-10] MEDS: FLUoxetine 20 MG CAPSULE PO SCH (09:02)
[2021-05-10] MEDS: allopurinoL 100 MG TABLET PO SCH (09:02)
[2021-05-10] MEDS: atenoloL 50 MG TABLET PO SCH (09:03)
[2021-05-10] MEDS: Insulin DETEMIR 100 UNIT/ML X5UNITS SUBQ SCH ×2 (09:27→21:39)
[2021-05-10] MEDS: Insulin LISPRO 300 UNITS/3 ML VIAL SUBQ SCH ×4 (09:27→21:39)
[2021-05-10] MEDS: Budesonide/Formoterol 160/4.5 1 PUFF INH IH SCH ×2 (11:00→21:23)
[2021-05-10] MEDS: Benzonatate 100 MG CAPSULE PO PRN ×2 (12:27→21:44)
[2021-05-11] MEDS: Piperacillin/Tazobactam 3.375 GM in 0.9 % Sodium Chloride Mini Bag 100 ML IVPB SCH ×3 (00:27→17:49)
[2021-05-11 07:33] VITALS: BP 162/75
[2021-05-11] MEDS ORDERED: amLODIPine 5 MG TABLET PO SCH (09:00)
[2021-05-11] MEDS: FLUoxetine 20 MG CAPSULE PO SCH (09:09)
[2021-05-11] MEDS: Magnesium Oxide 400 MG TABLET PO SCH (09:09)
[2021-05-11] MEDS: Cholecalciferol (D-3) 1,000 UNIT (25MCG) TABLET PO SCH (09:09)
[2021-05-11] MEDS: Aspirin Enteric Coated 81 MG Tablet PO SCH (09:09)
[2021-05-11] MEDS: Gabapentin 300 MG CAPSULE PO SCH ×2 (09:09→15:53)
[2021-05-11] MEDS: Carbidopa/Levodopa 25/100 TABLET PO SCH ×2 (09:09→15:53)
[2021-05-11] MEDS: lisinopriL 10 MG TABLET PO SCH (09:10)
[2021-05-11] MEDS: cloNIDine HCL 0.1 MG TABLET PO SCH (09:10)
[2021-05-11] MEDS: Ranolazine 500 MG TAB.ER.12H PO SCH (09:10)
[2021-05-11] MEDS: allopurinoL 100 MG TABLET PO SCH (09:10)
[2021-05-11] MEDS: Furosemide 20 MG TABLET PO SCH (09:10)
[2021-05-11] MEDS: atenoloL 50 MG TABLET PO SCH (09:10)
[2021-05-11] MEDS: carvediloL 6.25 MG TABLET PO SCH ×2 (09:10→15:52)
[2021-05-11] MEDS: ARIPiprazole 10 MG TABLET PO SCH (09:10)
[2021-05-11] MEDS: Insulin DETEMIR 100 UNIT/ML X5UNITS SUBQ SCH (09:11)
[2021-05-11] MEDS: Insulin LISPRO 300 UNITS/3 ML VIAL SUBQ SCH ×3 (09:12→17:49)
[2021-05-11] MEDS: Budesonide/Formoterol 160/4.5 1 PUFF INH IH SCH (11:10)
== END 2021-05-11 18:56 | DRG 463 ==
LOC: INPPIK 05:50 → EMEROOPIK 05:50 → INPPIK 08:47
PROVIDERS: ADMIT Family Medicine; ATTEND Family Medicine